=== PATIENT | male | born 1950 | race Caucasian/White ===

== ENCOUNTER → 2016-11-15 | Outpatient (CLI) | payer OTHER | LOC: FIMAGING 06:53 | PROVIDERS: ATTEND Psychiatry & Neurology Neurology | DX: R94.02 Abnormal brain scan (principal); G40.909 Epilepsy, unspecified, not intractable, without status epilepticus ==

== ENCOUNTER → 2016-11-24 | Outpatient (CLI) | payer OTHER ==
--- NOTE | 2016-11-27 12:04 | CPEEG ---
[f rep st] ELECTROENCEPHALOGRAM PROLONGED VIDEO EEG DATE OF STUDY: 11/24/2016 DATE OF INTERPRETATION: 11/27/2016. INTERPRETATION: This prolonged video-EEG recording is normal. There were no potentially epileptogenic abnormalities present in the awake or partial sleep recordings. During the video EEG monitoring session, the patient did not have any clinical events. REPORT: This prolonged video-EEG monitoring session contained 9 Hz alpha activity over the posterior head regions. There was no abnormal activation at rest, photic stimulation or hyperventilation. The patient became intermittently drowsy and fell into partial sleep during the study. There was no abnormal activation during drowsiness, partial sleep or during times of arousal. The patient did not have any clinical events during the video EEG monitoring session. This study was abbreviated due to the patient becoming uncomfortable and requesting the study to be ended. /[id number]/MODL MTDD
== END ==
LOC: FCPNEURO 08:42
PROVIDERS: ATTEND Psychiatry & Neurology Neurology
DX: G40.909 Epilepsy, unspecified, not intractable, without status epilepticus (principal)

== ENCOUNTER → 2017-04-20 | Outpatient (CLI) | payer OTHER | LOC: CIMAGING 14:18 | PROVIDERS: ATTEND Family Medicine | DX: M25.522 Pain in left elbow (principal) | CPT/HCPCS: 93971-PO ==

== ENCOUNTER → 2017-09-24 | Outpatient (CLI) | payer OTHER | LOC: CIMAGING 12:20 | PROVIDERS: ATTEND Family Medicine | DX: J98.4 Other disorders of lung (principal) | CPT/HCPCS: 71046-PO ==

== ENCOUNTER 2017-11-08 06:56 | Observation (INO) | payer OTHER ==
[2017-11-08] MEDS ORDERED: diphenhydrAMINE 25 MG CAP PO ONE (07:00)
[2017-11-08] MEDS ORDERED: DIAZEPAM 5 MG TAB PO ONE (07:00)
[2017-11-08] MEDS ORDERED: BACITRACIN IRRIGATION/NS 50,000 UNITS/1,000 ML BTL IRR ONE (07:00)
[2017-11-08] MEDS ORDERED: ceFAZolin 2 GM/SWFI 2 GM/20 ML SYR IVP ONE (07:00)
[2017-11-08] MEDS ORDERED: NS 1,000 ML IV ONE (07:00)
--- NOTE | 2017-11-08 07:18 | CPEKG ---
Heart Rate: 66 RR Interval: 909 P-R Interval: 192 QRSD Interval: 84 QT Interval: 432 QTC Interval: 453 P [place]: 12 QRS [place]: -27 T Wave [place]: 18 EKG Severity - BORDERLINE ECG - EKG Impression: SINUS ARRHYTHMIA, RATE 56-79 EKG Impression: PROBABLE LEFT ATRIAL ABNORMALITY EKG Impression: BORDERLINE LEFT AXIS DEVIATION Electronically Signed By: Swapnil Gerber 14-Nov-2017 11:11:08
[2017-11-08 07:39] LABS: PLATELET COUNT 205 10^3/uL (150-400)
[2017-11-08] MEDS ORDERED: methylPREDNISolone SOD SUCC 125 MG/2 ML VIAL IVP ONE (07:55)
[2017-11-08] MEDS ORDERED: FAMOTIDINE 20 MG/NACL 50 ML IV ONE (07:55)
[2017-11-08 07:57] LABS: INR 0.88 (0.83-1.16); PROTIME(PATIENT) 12.2 SEC (12.0-15.0)
[2017-11-08] MEDS ORDERED: LIDOCAINE 1% 300 MG/30 ML SDV ONE ×2 (08:01→09:17)
[2017-11-08] MEDS ORDERED: fentaNYL 100 MCG/2 ML INJ ONE (08:01)
[2017-11-08] MEDS ORDERED: MIDAZOLAM 2 MG/2 ML VIAL ONE ×2 (08:01→09:26)
--- NOTE | 2017-11-08 08:27 | PDGENHP ---
History & Physical Chief Complaint: Flutter AF and 8 sec pause on event monitor History of Present Illness: As above, flutter fib and 8 sec pause on event monitor Pertinent Past, Social, Family History: Reviewed and no changes Relevant Physical Exam: S1S2 regular no S3 Cardiorespiratory Assessment: Normal good aebe
--- NOTE | 2017-11-08 08:28 | PDPROPOC ---
Sedation Plan of Care Sedation Plan of Care: vital signs stable, mental status noted, patient educated of risks, benefits, alternatives, patient can tolerate sedation ASA Classification: ASA 3 Planned drugs: fentanyl, midazolam Mallampati Score: Class 3 Mallampati Reference Image: Patient passed 3-3-2 rule?: Yes
[2017-11-08] MEDS ORDERED: FLUTICASONE NASAL 120 SPRAYS/16 GM MDI EACHNARE PRN (10:05)
[2017-11-08] MEDS ORDERED: ZOLPIDEM TARTRATE 5 MG TAB PO PRN (10:05)
[2017-11-08] MEDS ORDERED: CARBOXYMETHYLCELLULOSE 1% 0.4 ML DROPERETTE EACHEYE PRN (10:05)
[2017-11-08] MEDS ORDERED: MOMETASONE 220MCG INHALER IH PRN ×2 (10:05→11:03)
[2017-11-08] MEDS ORDERED: ALBUTEROL 60 PUFFS/8 GM MDI IH PRN (10:05)
[2017-11-08] MEDS: ACETAMINOPHEN 325 MG TAB PO PRN ×2 (15:09→20:53)
[2017-11-08] MEDS: cycloSPORINE 0.05% 30 DROPERETTE/BOX EACHEYE SCH (20:06)
[2017-11-08] MEDS: APIXABAN 5 MG TAB PO SCH (20:53)
[2017-11-08] MEDS ORDERED: APIXABAN 5 MG TAB PO SCH (21:00)
[2017-11-09] MEDS: ACETAMINOPHEN 325 MG TAB PO PRN ×2 (05:12→10:36)
[2017-11-09] MEDS: APIXABAN 5 MG TAB PO SCH (07:59)
[2017-11-09] MEDS: cycloSPORINE 0.05% 30 DROPERETTE/BOX EACHEYE SCH (08:00)
--- NOTE | 2017-11-09 08:50 | CPEKG ---
Heart Rate: 74 RR Interval: 811 P-R Interval: 180 QRSD Interval: 90 QT Interval: 416 QTC Interval: 462 P [place]: 9 QRS [place]: -27 T Wave [place]: 5 EKG Severity - BORDERLINE ECG - EKG Impression: SINUS RHYTHM EKG Impression: PROBABLE LEFT ATRIAL ABNORMALITY EKG Impression: BORDERLINE LEFT AXIS DEVIATION Electronically Signed By: Swapnil Gerber 14-Nov-2017 11:10:55
[2017-11-09] MEDS ORDERED: LEVETIRACETAM PO SCH ×2 (09:00)
[2017-11-09] MEDS ORDERED: [UNRECOGNIZED DRUG - OTHER] PO SCH (09:00)
[2017-11-09] MEDS ORDERED: HYDROCHLOROTHIAZIDE PO SCH (09:00)
[2017-11-09] MEDS ORDERED: ATORVASTATIN CALCIUM 20 MG TAB PO SCH (09:00)
[2017-11-09] MEDS ORDERED: PANTOPRAZOLE SODIUM 40 MG TAB PO SCH (09:00)
[2017-11-09] MEDS ORDERED: LOSARTAN/HCTZ 50/12.5 1 TAB PO SCH (09:00)
[2017-11-09] MEDS ORDERED: Herbals/Supplements -Info Only PO SCH (09:00)
[2017-11-09] MEDS ORDERED: METOPROLOL SUCCINATE XR 100 MG TAB PO SCH (09:00)
[2017-11-09] MEDS ORDERED: LOSARTAN PO SCH (09:00)
[2017-11-09] MEDS ORDERED: NON-FORMULARY NEW DRUG (Omeprazole Magnesium [Prilosec Otc] 20 MG) PO SCH (09:00)
[2017-11-09] MEDS ORDERED: valACYclovir 500 MG TAB PO SCH (09:00)
[2017-11-09] MEDS ORDERED: MONTELUKAST SODIUM 10 MG TAB PO SCH (09:00)
[2017-11-09] MEDS ORDERED: NON-FORMULARY NEW DRUG (Meloxicam [Meloxicam] 15 MG) PO SCH (09:00)
[2017-11-09] MEDS ORDERED: NON-FORMULARY NEW DRUG (Valacyclovir Hcl [Valtrex] 1,000 MG) PO SCH (10:05)
--- NOTE | 2017-11-09 11:30 | GDS ---
[f rep st] DISCHARGE SUMMARY DISCHARGE DIAGNOSES: 1. Asymptomatic pauses noted on LINQ monitor of 8 seconds, status post Biotronik dual chamber pacema ker. 2. Asymptomatic atrial fibrillation and atrial flutter, currently on Eliquis. 3. Hypertension. 4. Hyperlipidemia. 5. Transient ischemic attack. HOSPITAL COURSE: For detailed H and P, please see prior dictation. Briefly, the patient is a 67-yea r-old male with a history of TIA, hypertension, hyperlipidemia, and asymptomatic atrial fibrillation and atrial flutter. He is also noted to have pauses of 8 seconds on LINQ monitor, which were asympto matic. Ultimately, due to his significant pauses, the decision was made to proceed with dual-chamber pacemaker placement. This was done by Dr. Saravanan Van on November 08, 2017. He had a Biotronik DDDR pacer placed. The procedure was uncomplicated. The following morning, he denied any significant dis comfort over his pacer site. He was monitored on telemetry and was intermittently paced. Pacer inte rrogation the following morning showed his device to be working appropriately. An EKG the following morning revealed A pacing without any significant ST-T wave changes. Chest x-ray the day of discharg e is currently pending. PHYSICAL EXAMINATION: GENERAL: Patient appears in no acute distress. VITALS: Blood pressure 158/8 3, heart rate 71, oxygen saturation of 96% on room air. LUNGS: Clear to auscultation. No wheezes, rhonchi, or crackles auscultated. CARDIAC: Regular rate and rhythm without any significant murmurs, rubs, or gallops appreciated. Chest wall over his pacer site is clean and intact, without any evide nce of hematoma or infection. DISCHARGE MEDICATIONS: Flonase p.r.n., Prilosec 20 mg daily, metoprolol succinate 200 mg daily, losa rtan/HCTZ 100-25 mg daily, albuterol p.r.n., herbal supplement daily, Valtrex 1000 mg on Sunday and Sunday, Singulair 10 mg daily, Ambien 5 mg 2 tabs at bedtime p.r.n., Restasis eyedrops, Refresh eye d rops, Tylenol p.r.n. for pain, Meloxicam 15 mg daily, Asmanex p.r.n., Lipitor 20 mg daily, Keppra XR 2250 mg daily, Eliquis 5 mg b.i.d. PLAN: The patient is currently stable and ready for discharge pending the results of his chest x-ray . If no pneumothorax is identified, he will be discharged home. He has been given pacer precautions . He is scheduled to follow up in our office in 1 week for a pacer interrogation and wound check. Greater than 30 minutes was spent coordinating the patient's care today. /[id number]/MODL
[2017-11-09 11:46] VITALS: BP 143/75; PULSE 63; RESP 17; TEMP 97.4; O2SAT 96
--- NOTE | 2017-11-09 12:43 | EPPROC ---
Electrophysiology Procedure Note: PROCEDURE PERFORMED: Implantation of an A/V Pacemaker Fluoroscopy INDICATION: This is a 67 r old male with SSS who had 8 sec pause on LINQ monitor and hence it was decided to implant a dual chamber pacemaker PROCEDURE NOTE: Patient presented to the cardiac catherization laboratory in a fasting, post absorptive state. Cardiac lab asst nurse administered moderate sedation. The left infraclavicular area was prepped and draped in the usual sterile fashion. Lidocaine plus bupivacaine was used for local anesthesia. Left subclavian venography was performed by injection of iodinated contrast into the left antecubital vein. This was done to assure patency of the vein and also to assess for any anatomical aberrations. Using a combination of blunt and sharp dissection and electrocautery, the dissection was carried down to the prepectoral fascia. All bleeding was controlled with electrocautery. Fluoroscopy was utilized during the entire procedure for venous access and placement of the leads. Using the usual technique, left cephalic vein was accessed and a glidewire was placed. Through this initially a 9F and later a 7F sheath was passed. Placement of the guidewires into the venous system was confirmed by low- pressure blood return and also by visualizing the guidewires advancing into the inferior vena cava. A purse string suture was applied around the guidewires. An active fixation ventricular lead was advanced into the right ventricular apex and screwed in place. An active fixation atrial lead was advanced into the right atrial appendage and screwed in place. The peel away sheaths were removed. Pacing thresholds, sensing parameters and lead impedances were measured. There was no diaphragmatic stimulation at maximum output. The leads were sutured to the prepectoral fascia with 3 nonabsorbable sutures each. The pocket was created and it was flushed using antibiotic solution. It was inspected for any bleeding. The leads were attached to the pacemaker securely. The pacemaker was inserted into the pocket and secured in place with a nonabsorbable suture. Fluoroscopy was performed in RAYA and POLISH planes to verify right-sided placement of the leads. Also fluoroscopy of the pacemaker pocket was performed. The pacemaker pocket was closed in 3 layers with absorbable vicryl sutures. Steristrips were placed. Appropriate dressing was applied. The patient left the cardiac catheterization laboratory in stable condition. Serial Numbers: Device: Biotronik Edora [id number] Atrial Lead: Biotronik Solia S45 SN [id number] Ventricular Lead: Biotronik SOlia S53 SN [id number] Stimulation Thresholds & Impedance Measurements: Atrial Lead 2.1 mV, 0.8@0.4ms, 468Ohms Ventricular Lead 8.6mV, 0.4@0.4ms, 721Ohms Sridhar Pacing Parameters Pacing mode: DDDR Lower rate: 60 Upper tracking rate: 130 Upper sensor rate: 130 Patient Problems: Problems Problem Status Onset Osteoarthritis of knee Acute
--- NOTE | 2017-11-09 16:50 | ASDISCHSUM ---
Discharge Information Plan Status:Home with No Needs Medically Cleared to Leave:11/09/2017 Discharge Date:11/09/2017 12:18 PM CM D/C Disposition:Home, Routine, Self-Care ADT D/C Disposition:Home, Routine, Self-Care Projected Discharge Date:11/09/2017 12:18 PM Transportation at D/C: Discharge Delay Reason: Follow-Up Date:11/09/2017 12:18 PM Discharge Slot: Final Diagnosis: Placement Information Patient Contact Information Contact Name:JAIDASONALI Relationship: Address:[address] Work Phone: [facility]:[place] Alternate Phone: [facility]/Zip Code:[place] [address] Email: Financial Information Financial Class:Medicare Primary Plan Desc:MEDICARE OUTPATIENT Primary Plan Number:[id number] Secondary Plan Desc:[facility] [employer] [facility] Secondary Plan Number:[id number] Assessment Information LACE LACE Length of stay for Answers: 1 day current admission Acuity / Level of Answers: No Care: Did the patient have an inpatient admission? Comorbidities - select Answers: Cerebrovascular disease all that apply (CVA, TIA, aneurysms, vasc ular dementia) Other Notes: SSS, AFL, s/p PPM # of Emergency department Answers: 0 visits in the last 6 months Score: 3 Date Signed: 11/09/2017 04:49 PM Electronically Signed By:Shayna Jolley RN Case Management Discharge Plan Note Case Management Discharge Discharge Order Complete? Answers: Yes Patient to Obtain Answers: Independently Medications Transportation Arranged Answers: Family/Friends Discharge Comments Notes: 11/09/2017 Case Management Note Pt did not have any case management d/c needs d/t age, marital status and employment status. There were no PT or OT evals ordered. Pt d/c independent with follow up as directed. Date Signed: 11/09/2017 01:04 PM Electronically Signed By:Shayna Jolley RN Intervention Information Intervention Type:*GUILLORY-Signed Date of Service:11/09/2017 10:53 AM Patient Type:Observation Staff Member:Ely Cavazos Hours: Discipline: Severity: Comment:
== END 2017-11-09 12:18 | disposition home or self-care (01) ==
LOC: FCATH 06:56 → EEVIPCON 10:04 → F2W 10:04
PROVIDERS: ADMIT Internal Medicine Cardiovascular Disease; ATTEND Internal Medicine Cardiovascular Disease
PROC: 0JH606Z Insertion of Pacemaker, Dual Chamber into Chest Subcutaneous Tissue and Fascia, Open Approach (ICD-10-PCS; principal; 2017-11-08)
PROC: 02H63JZ Insertion of Pacemaker Lead into Right Atrium, Percutaneous Approach (ICD-10-PCS; principal; 2017-11-08)
PROC: 02HK3JZ Insertion of Pacemaker Lead into Right Ventricle, Percutaneous Approach (ICD-10-PCS; principal; 2017-11-08)
DX: I49.5 Sick sinus syndrome (principal); I48.91 Unspecified atrial fibrillation; I48.92 Unspecified atrial flutter; I10 Essential (primary) hypertension; E78.5 Hyperlipidemia, unspecified; Z79.01 Long term (current) use of anticoagulants; Z86.73 Personal history of transient ischemic attack (TIA), and cerebral infarction without residual deficits
CPT/HCPCS: 33208; 71046; 93005; C1769; C1785; C1898; J0690; J1200; J2250; J2930; J3010

== ENCOUNTER → 2018-02-15 | Outpatient (CLI) | payer OTHER | LOC: FIMAGING 09:30 | PROVIDERS: ATTEND Nurse Practitioner Adult Health | DX: T82.110A Breakdown (mechanical) of cardiac electrode, initial encounter (principal); Z95.0 Presence of cardiac pacemaker ==

== ENCOUNTER 2018-03-20 09:11 | Day surgery (SDC) | payer OTHER ==
[2018-03-20] MEDS ORDERED: FAMOTIDINE 20 MG/NACL 50 ML IV ONE (09:14)
[2018-03-20] MEDS ORDERED: methylPREDNISolone SOD SUCC 125 MG/2 ML VIAL IVP ONE (09:14)
[2018-03-20] MEDS ORDERED: BACITRACIN IRRIGATION/NS 50,000 UNITS/1,000 ML BTL IRR ONE (09:14)
[2018-03-20] MEDS ORDERED: ceFAZolin 2 GM/DEXTROSE 100 ML IV ONE (09:14)
[2018-03-20] MEDS ORDERED: NS 1,000 ML IV ONE (09:14)
[2018-03-20 09:44] LABS: PLATELET COUNT 205 10^3/uL (150-400)
[2018-03-20 10:00] LABS: INR 0.93 (0.83-1.16); PROTIME(PATIENT) 12.7 SEC (12.0-15.0)
--- NOTE | 2018-03-20 10:08 | CPEKG ---
Heart Rate: 60 RR Interval: 1000 P-R Interval: 192 QRSD Interval: 86 QT Interval: 456 QTC Interval: 456 P [place]: 28 QRS [place]: -29 T Wave [place]: -9 EKG Severity - ABNORMAL ECG - EKG Impression: PACEMAKER SPIKES OR ARTIFACTS EKG Impression: SINUS RHYTHM EKG Impression: PROBABLE LEFT ATRIAL ABNORMALITY EKG Impression: BORDERLINE LEFT AXIS DEVIATION EKG Impression: BORDERLINE T ABNORMALITIES, INFERIOR LEADS Electronically Signed By: Kelley Hernandez 20-Mar-2018 16:18:15
[2018-03-20] MEDS ORDERED: IOPAMIDOL (ISOVUE-300) 50 ML VIAL ONE (10:18)
[2018-03-20] MEDS ORDERED: MIDAZOLAM 2 MG/2 ML VIAL ONE (10:18)
[2018-03-20] MEDS ORDERED: LIDOCAINE 1% 300 MG/30 ML SDV ONE (10:18)
[2018-03-20] MEDS ORDERED: fentaNYL 100 MCG/2 ML INJ ONE (10:18)
[2018-03-20] MEDS ORDERED: BUPIVACAINE 0.5% 30 ML SDV ONE (10:19)
--- NOTE | 2018-03-20 13:52 | CPEKG ---
Heart Rate: 60 RR Interval: 1000 P-R Interval: 196 QRSD Interval: 86 QT Interval: 460 QTC Interval: 460 QRS [place]: -32 T Wave [place]: -13 EKG Severity - ABNORMAL ECG - EKG Impression: ATRIAL-PACED RHYTHM EKG Impression: LEFT AXIS DEVIATION EKG Impression: PROBABLE LEFT VENTRICULAR HYPERTROPHY EKG Impression: TALL R WAVE IN V2, CONSIDER RVH OR PMI EKG Impression: BORDERLINE T ABNORMALITIES, INFERIOR LEADS Electronically Signed By: Kelley Hernandez 20-Mar-2018 16:17:57
--- NOTE | 2018-03-20 14:23 | PDHPUP ---
History & Physical Update H&P update statement: This history and physical update is based on an assessment of the patient which was completed after admission or registration (within 24 hours), but prior to the surgery/procedure. H&P update: H&P reviewed & patient examined, no change in patient's condition since H&P completed
--- NOTE | 2018-03-20 14:23 | PDPROPOC ---
Sedation Plan of Care Sedation Plan of Care: vital signs stable, mental status noted, patient educated of risks, benefits, alternatives, patient can tolerate sedation ASA Classification: ASA 1 Planned drugs: fentanyl, midazolam Mallampati Score: Class 1 Mallampati Reference Image: Patient passed 3-3-2 rule?: Yes
--- NOTE | 2018-03-20 14:23 | EPPROC ---
Electrophysiology Procedure Note: PROCEDURE PERFORMED: 1. Explant of Ventricular lead 2. Capping of atrial port on pacemaker generator 3. Explant of LINQ ILR INDICATION: Pt. had PM placed by Dr. Saravanan Van. Chronic RV lead dislodgement. Patient did not want repositioning or implant of new right ventricular lead, please refer to my clinic note. PROCEDURE NOTE: Patient presented to the cardiac catheterization laboratory in a fasting, post absorptive state . CCL RN administered sedation. The left infraclavicular area was prepped and draped in the usual sterile fashion. Lidocaine plus bupivacaine was used for local anesthesia. LINQ monitor was explanted using standard technique under local anesthesia. 2 josé were applied. Using a combination of blunt and sharp dissection and electrocautery, the existing pacemaker pocket was opened. The pocket was lateral because of cephalic vein access. The right ventricular lead was disconnected from the device and after confirming serial numbers, was dissected free of scar tissue. Suture sleeve sutures were removed. Lead was easily extracted , it was free floating and dislodged. The atrial lead thresholds were checked pre and post procedure and remained stable. The ventricular port on the dual-chamber pacemaker was plugged. The pacemaker pocket was closed in 3 layers with absorbable monocryl sutures and josé. Appropriate dressing was applied. The patient left the cardiac catheterization laboratory in stable condition. Serial Numbers: 1. Device: Biotronik Edora 8 DRT SN [id number] 2. Atrial Lead: Biotronik Solia S45 SN [id number] Stimulation Thresholds & Impedance Measurements: 1. Atrial Lead 0.6 V 0.4 ms P 5.7 mV 567 ohm Sridhar Pacing Parameters 1. Pacing mode: AAI 2. Lower rate: 60ppm Patient Problems: Problems Problem Status Onset Osteoarthritis of knee Acute
== END 2018-03-20 16:30 | disposition home or self-care (01) ==
LOC: FCATH 09:11
PROVIDERS: ATTEND Internal Medicine Cardiovascular Disease
DX: T82.120A Displacement of cardiac electrode, initial encounter (principal)
CPT/HCPCS: J0690; J2250; J3010; Q9967

== ENCOUNTER 2018-06-26 10:59 | Emergency (ER) | payer OTHER ==
[2018-06-26] MEDS ORDERED: NS 1,000 ML IV ONE (11:26)
--- NOTE | 2018-06-26 11:32 | EDPHY ---
H & P Stated Complaint: 4 weeks increasing lumbar back pain /?flank pain Source: Patient Exam Limitations: No limitations - Personal History Current Tetanus Diphtheria and Acellular Pertussis (TDAP): Yes - Medical/Surgical History Hx Asthma: Yes Hx Chronic Respiratory Disease: No Hx Diabetes: No Hx Cardiac Disease: No Hx Renal Disease: No Hx Cirrhosis: No Hx Alcoholism: No Hx HIV/AIDS: No Hx Splenectomy or Spleen Trauma: No Other PMH: HTN. ORTHO KNEE & ELBOW SURGERY, epilepsy, sleep apnea, asthma, allergies. back issues - Family History Significant Family History: No pertinent family hx - Social History Smoking Status: Never smoked Alcohol Use: Sober Drug Use: None Time Seen by Provider: 06/26/18 11:21 HPI/ROS: CHIEF COMPLAINT: Back pain HISTORY OF PRESENT ILLNESS: The patient is a 67-year-old man who has been treated for chronic mid and low back pain by a client care specialist Dr. Gold. He has recently received steroid injections and today was scheduled for the radiofrequency treatment. He has discontinued his meloxicam over the last few days in preparation for today's treatment. He states that his pain and spasming his growing worse. Today when he presented to her office she felt that his symptoms are more consistent possibly with a kidney stone or infection and recommended that he come here for rule out of these issues. He has not had any weakness or numbness. He has not had any bowel or bladder abnormalities. No fevers. The he is not currently taking any muscle relaxants or pain medications. Severity: Severe Modifying factors: None REVIEW OF SYSTEMS: Constitutional: denies: chills, fever, recent illness, recent injury EENTM: denies: blurred vision, double vision, nose congestion Respiratory: denies: cough, shortness of breath Cardiac: denies: chest pain, irregular heart rate, lightheadedness, palpitations Gastrointestinal/Abdominal: denies: abdominal pain, diarrhea, nausea, vomiting, blood streaked stools Genitourinary: denies: dysuria, frequency, hematuria, pain Musculoskeletal: See HPI Skin: denies: lesions, rash, jaundice, bruising Neurological: denies: headache, numbness, paresthesia, tingling, dizziness, weakness Hematologic/Lymphatic: denies: blood clots, easy bleeding, easy bruising Immunologic/allergic: denies: HIV/AIDS, transplant 10 systems reviewed and negative except as noted EXAM: GENERAL: Moderate distress, feels better standing up. HEAD: Atraumatic, normocephalic. EYES: Pupils equal round and reactive to light, extraocular movements intact, sclera anicteric, conjunctiva are normal. ENT: TMs normal, nares patent, oropharynx clear without exudates. Moist mucous membranes. NECK: Normal range of motion, supple without lymphadenopathy or JVD. LUNGS: Breath sounds clear to auscultation bilaterally and equal. No wheezes rales or rhonchi. HEART: Regular rate and rhythm without murmurs, rubs or gallops. ABDOMEN: Soft, nontender, normoactive bowel sounds. No guarding, no rebound. No masses appreciated. BACK: Left-sided CVA pain, no tenderness, no spinal tenderness, step-offs or deformities EXTREMITIES: Normal range of motion, no pitting or edema. No clubbing or cyanosis. NEUROLOGICAL: Cranial nerves II through XII grossly intact. Normal speech, able to ambulate with pain. 5/5 strength, normal movement in all extremities, normal sensation, normal reflexes PSYCH: Normal mood, normal affect. SKIN: Warm, dry, normal turgor, no visible rashes or lesions. (Darnell García) Constitutional: Initial Vital Signs Temperature (C) 36.9 C 06/26/18 11:02 Heart Rate 73 06/26/18 11:02 Respiratory Rate 18 06/26/18 11:02 Blood Pressure 156/72 H 06/26/18 11:02 O2 Sat (%) 97 06/26/18 11:02 O2 Delivery Mode Room Air Allergies/Adverse Reactions: shellfish derived Allergy (Severe, Verified 06/26/18 11:02) Swelling/neck,face,throat Sulfa (Sulfonamide Antibiotics) Allergy (Severe, Verified 06/26/18 11:02) Unknown tree nut [Nuts] Allergy (Verified 06/26/18 11:02) all fish, seafood Allergy (Severe, Uncoded 05/25/14 11:38) Swelling/neck,face,throat Home Medications: Medication Instructions Recorded Fluticasone Nasal [Flonase Nasal 1 sprays EACHNARE DAILY PRN 06/02/11 [place]] Albuterol [Proventil Inhaler HFA 2 puffs IH Q4 PRN 05/18/14 (*)] Losartan/Hydrochlorothiazide 1 tab PO DAILY 05/18/14 [Losartan-Hctz 100-25 mg Tab] Metoprolol Succinate Xr [Toprol Xl 200 mg PO DAILY 05/18/14 100 mg (*)] Montelukast Sodium [Singulair 10 10 mg PO HS 05/18/14 mg (*)] Omeprazole Magnesium [Prilosec Otc] 20 mg PO DAILY 05/18/14 Valacyclovir HCl [Valtrex] 500 mg PO BID PRN 05/18/14 Acetaminophen [Tylenol 325mg (*)] 325 mg PO Q6 PRN 11/06/17 Apixaban [Eliquis] 5 mg PO BID 11/06/17 Atorvastatin Calcium [Lipitor 20 20 mg PO HS 11/06/17 mg (*)] Carboxymethylcellulose 1% [Refresh 1 drop EACHEYE DAILY PRN 11/06/17 Celluvisc (*)] Mometasone 220Mcg Inhaler [Asmanex 1 puffs IH DAILY PRN 11/06/17 Inh (*)] Zolpidem Tartrate [Ambien 5MG (*)] 10 mg PO HS PRN 11/06/17 cycloSPORINE 0.05% [Restasis Opht 1 drop EACHEYE BID 11/06/17 Drops(*)] levETIRAcetam [KEPPRA XR 750 mg] 2,250 tab PO DAILY 11/06/17 Multivitamins [Multivitamin (*)] 1 each PO DAILY 03/07/18 Tadalafil [Cialis] 20 mg PO DAILY PRN 03/07/18 Meloxicam 15 mg PO DAILY 03/20/18 Mometasone 220Mcg Inhaler [Asmanex 1 puffs IH BID 03/20/18 Inh (*)] Diazepam [Valium 5 MG (*)] 5 mg PO Q6 PRN #10 tab 06/26/18 Medical Decision Making - Diagnostics Imaging: Discussed imaging studies w/ call or contact centre operator Radiologist ED Course/Re-evaluation: I assumed care of this patient at shift change. The plan is to discharge the patient home after the MRI. MRI results discussed with the patient and his . Requesting prescription for Valium. Will follow up with Dr. Gold. ([place] Laura) I spoke with the patient's neurosurgeon Dr. Gold. She is requesting an MRI of the patient's lumbar spine to rule out infection because the patient's pain is worsen. Also had a low-grade fever at the clinic. No weakness or numbness. He does have a pacemaker however which will complicated situation. 2:45 p.m. the patient's pain is somewhat better after Valium. He will be here for another couple hours waiting for nurse monitoring to be available and the pacer sensor technician to the place his pacer in MRI mode. I will give him a dose of Toradol. Care transferred to Dr. Salma Helton at shift change. (Darnell García ) Differential Diagnosis: Partial list of the Differential diagnosis considered include but were not limited to; back pain, radiculopathy, infection, kidney stone, urinary tract infection and although unlikely based on the history and physical exam, I also considered acute coronary disease, dissection,. I discussed these differential diagnoses and the plan with the patient as well as the usual and expected course. The patient understands that the diagnosis is provisional and that in medicine we are not always correct and that further workup is often warranted. Usual and customary warnings were given. All of the patient's questions were answered. The patient was instructed to return to the emergency department should the symptoms at all worsen or return, otherwise to followup with the physician as we discussed. (Darnell García) - Data Points Laboratory Results: Laboratory Results 06/26/18 11:40 06/26/18 11:40 Medications Given: Discontinued Medications Diazepam (Valium) 5 mg IVP EDNOW ONE Stop: 06/26/18 11:52 Last Admin: 06/26/18 11:52 Dose: 5 mg Diazepam (Valium) 2.5 mg IVP EDNOW ONE Stop: 06/26/18 16:40 Last Admin: 06/26/18 16:40 Dose: 2.5 mg Hydromorphone HCl (Dilaudid) 1 mg IVP EDNOW ONE Stop: 06/26/18 15:13 Last Admin: 06/26/18 15:18 Dose: 1 mg Sodium Chloride (Ns) 1,000 mls @ 0 mls/hr IV EDNOW ONE; Wide Open PRN Reason: Protocol Stop: 06/26/18 11:27 Last Admin: 06/26/18 11:52 Dose: 1,000 mls Ketorolac Tromethamine (Toradol) 15 mg IVP EDNOW ONE Stop: 06/26/18 14:44 Last Admin: 06/26/18 14:45 Dose: 15 mg Departure - Departure Disposition: Home, Routine, Self-Care Clinical Impression: Low back pain Qualifiers: Chronicity: chronic Back pain laterality: midline Sciatica presence: without sciatica Qualified Code(s): M54.5 - Low back pain; G89.29 - Other chronic pain; G89.29 - Other chronic pain Condition: Fair Instructions: Acute Low Back Pain (ED) Referrals: Iris Steele MD [Primary Care Provider] - As per Instructions Mohini Gold [Medical Doctor] - As per Instructions (Call to make an appointment. ) Prescriptions: Diazepam [Valium 5 MG (*)] 5 mg PO Q6 PRN #10 tab PRN Reason: muscle spasm
[2018-06-26] MEDS ORDERED: DIAZEPAM 5 MG/ML 1 ML SYR ONE ×2 (11:50→16:35)
[2018-06-26] MEDS ORDERED: DIAZEPAM 5 MG/ML 1 ML SYR IVP ONE ×2 (11:51→16:39)
[2018-06-26 11:57] LABS: PLATELET COUNT 209 10^3/uL (150-400)
[2018-06-26] MEDS ORDERED: KETOROLAC 15 MG/1 ML SDV IVP ONE (14:43)
[2018-06-26] MEDS ORDERED: HYDROmorphONE/DILAUDID 2 MG/ML INJ IVP ONE (15:12)
[2018-06-26] MEDS ORDERED: HYDROmorphONE/DILAUDID 1 MG/ML INJ ONE (15:13)
[2018-06-26] MEDS ORDERED: GADOBUTROL 10 ML VIAL IVP ONE (16:50)
[2018-06-26 17:43] VITALS: BP 152/78
== END 2018-06-26 18:22 | disposition home or self-care (01) ==
DX: M54.5 Low back pain (principal); M48.061 Spinal stenosis, lumbar region without neurogenic claudication; M43.16 Spondylolisthesis, lumbar region; I10 Essential (primary) hypertension
CPT/HCPCS: 72158; 74176; 96374; 96375; 96376; 99285; A9585; J1170; J1885; J3360

== ENCOUNTER 2018-07-25 11:30 | Observation (INO) | payer OTHER ==
[2018-07-25] MEDS ORDERED: NS 1,000 ML IV ONE (11:35)
--- NOTE | 2018-07-25 11:37 | EDPHY ---
H & P Time Seen by Provider: 07/25/18 11:32 HPI/ROS: CHIEF COMPLAINT: Seizure HISTORY OF PRESENT ILLNESS: The patient is a 67-year-old man with a history of seizure disorder on Keppra. He also takes Eliquis but is unable to say why. He was at a car dealership this afternoon when he began having what witnesses state was "back spasming". He then was acutely confused. Paramedics state that he appeared postictal when they arrived. He is still oriented only to person. He states that he needs to go the bathroom. No focal weakness or deficits. Paramedics spoke with his on the phone who is on her way. She told them that similar episodes of happen before. No sign of trauma. Severity: Moderate Modifying factors: Gradually REVIEW OF SYSTEMS: Constitutional: denies: chills, fever, recent illness, recent injury EENTM: denies: blurred vision, double vision, nose congestion Respiratory: denies: cough, shortness of breath Cardiac: denies: chest pain, irregular heart rate, lightheadedness, palpitations Gastrointestinal/Abdominal: denies: abdominal pain, diarrhea, nausea, vomiting, blood streaked stools Genitourinary: denies: dysuria, frequency, hematuria, pain Musculoskeletal: denies: joint pain, muscle pain Skin: denies: lesions, rash, jaundice, bruising Neurological: See HPI Hematologic/Lymphatic: denies: blood clots, easy bleeding, easy bruising Immunologic/allergic: denies: HIV/AIDS, transplant 10 systems reviewed and negative except as noted EXAM: GENERAL: Slightly confused, appears postictal,, well-nourished and in no acute distress. HEAD: Atraumatic, normocephalic. EYES: Pupils equal round and reactive to light, extraocular movements intact, sclera anicteric, conjunctiva are normal. ENT: TMs normal, nares patent, oropharynx clear without exudates. Moist mucous membranes. NECK: Normal range of motion, supple without lymphadenopathy or JVD. LUNGS: Breath sounds clear to auscultation bilaterally and equal. No wheezes rales or rhonchi. HEART: Regular rate and rhythm without murmurs, rubs or gallops. ABDOMEN: Soft, nontender, normoactive bowel sounds. No guarding, no rebound. No masses appreciated. BACK: No CVA tenderness, no spinal tenderness, step-offs or deformities EXTREMITIES: Normal range of motion, no pitting or edema. No clubbing or cyanosis. NEUROLOGICAL: Cranial nerves II through XII grossly intact. Normal speech, normal gait. 5/5 strength, normal movement in all extremities, normal sensation , normal reflexes PSYCH: Normal mood, normal affect. SKIN: Warm, dry, normal turgor, no visible rashes or lesions. Source: Patient, EMS Exam Limitations: Clinical condition - Medical/Surgical History Hx Asthma: Yes Hx Chronic Respiratory Disease: No Hx Diabetes: No Hx Cardiac Disease: No Hx Renal Disease: No Hx Cirrhosis: No Hx Alcoholism: No Hx HIV/AIDS: No Hx Splenectomy or Spleen Trauma: No Other PMH: HTN. ORTHO KNEE & ELBOW SURGERY, epilepsy, sleep apnea, asthma, allergies. back issues - Social History Smoking Status: Never smoked Alcohol Use: Sober Drug Use: None Constitutional: Initial Vital Signs Temperature (C) 36.6 C 07/25/18 11:38 Heart Rate 77 07/25/18 11:38 Respiratory Rate 20 07/25/18 11:38 Blood Pressure 186/108 H 07/25/18 11:38 O2 Sat (%) 100 07/25/18 11:38 O2 Delivery Mode Non-Rebreather Mask Allergies/Adverse Reactions: shellfish derived Allergy (Severe, Verified 07/25/18 11:44) Swelling/neck,face,throat Sulfa (Sulfonamide Antibiotics) Allergy (Severe, Verified 07/25/18 11:44) Unknown tree nut [Nuts] Allergy (Verified 07/25/18 11:44) all fish, seafood Allergy (Severe, Uncoded 05/25/14 11:38) Swelling/neck,face,throat Home Medications: Medication Instructions Recorded Fluticasone Nasal [Flonase Nasal 1 sprays EACHNARE DAILY PRN 06/02/11 [place]] Albuterol [Proventil Inhaler HFA 2 puffs IH Q4 PRN 05/18/14 (*)] Losartan/Hydrochlorothiazide 1 tab PO DAILY 05/18/14 [Losartan-Hctz 100-25 mg Tab] Metoprolol Succinate Xr [Toprol Xl 200 mg PO DAILY 05/18/14 100 mg (*)] Montelukast Sodium [Singulair 10 10 mg PO DAILY 05/18/14 mg (*)] Omeprazole Magnesium [Prilosec Otc] 20 mg PO DAILY 05/18/14 Valacyclovir HCl [Valtrex] 500 mg PO BID PRN 05/18/14 Acetaminophen [Tylenol 325mg (*)] 650 mg PO TID 11/06/17 Apixaban [Eliquis] 5 mg PO BID 11/06/17 Atorvastatin Calcium [Lipitor 20 20 mg PO DAILY 11/06/17 mg (*)] Carboxymethylcellulose 1% [Refresh 1 drop EACHEYE DAILY PRN 11/06/17 Celluvisc (*)] Zolpidem Tartrate [Ambien 5MG (*)] 10 mg PO HS PRN 11/06/17 cycloSPORINE 0.05% [Restasis Opht 1 drop EACHEYE BID 11/06/17 Drops(*)] levETIRAcetam [KEPPRA XR 750 mg] 2,250 tab PO DAILY 11/06/17 Multivitamins [Multivitamin (*)] 1 each PO DAILY 03/07/18 Tadalafil [Cialis] 20 mg PO DAILY PRN 03/07/18 Meloxicam 15 mg PO DAILY 03/20/18 Mometasone 220Mcg Inhaler [Asmanex 1 puffs IH BID 03/20/18 Inh (*)] Diazepam [Valium 5 MG (*)] 5 mg PO Q6 PRN #10 tab 06/26/18 Cyclobenzaprine [Flexeril 10 MG 10 mg PO TID PRN 07/25/18 (*)] Gabapentin [Neurontin 300 MG (*)] 300 mg PO TID #90 cap 07/26/18 Medical Decision Making - Diagnostics Imaging: Discussed imaging studies w/ mail distribution clerk Radiologist ED Course/Re-evaluation: 12:15 p.m. the patient is having a seizure. This is his 2nd seizure. He has not completely cleared in between. I will order head CT and plan to admit. He is receiving Ativan. His is here now and states that he began having seizures a few months ago that they state is because of his severe back pain in that he has back surgery planned later this month. His neurologist is Dr. Medrano. He has been taking his Keppra. No fevers or recent trauma or illness. 12:[address] is reassuring. Technically did not clear between his seizures and qualifies as status. Will admit. I discussed the case with Sol who will admit to Dr. Sonja Alicea. 1:05 p.m. the patient has not had any further symptoms. The Ativan seems to be working. Is mental status is improving. Spoke with Dr. Alicea who will accept him to step-down. Differential Diagnosis: Partial list of the Differential diagnosis considered include but were not limited to; seizures, status epilepticus, electrolyte abnormality and although unlikely based on the history and physical exam, I also considered infection, head injury. - Data Points Laboratory Results: Laboratory Results 07/25/18 11:45 07/25/18 11:45 Medications Given: Discontinued Medications Acetaminophen (Tylenol) 650 mg PO Q4HRS PRN PRN Reason: Pain, Mild/Fever, Can Take PO Stop: 01/21/19 13:35 Last Admin: 07/25/18 20:12 Dose: 650 mg Acetaminophen (Tylenol) 1,000 mg PO ONCE ONE Stop: 07/25/18 14:14 Last Admin: 07/25/18 14:16 Dose: 1,000 mg Apixaban (Eliquis) 5 mg PO BID [facility] Stop: 01/21/19 20:59 Last Admin: 07/26/18 09:10 Dose: 5 mg Atorvastatin Calcium (Lipitor) 20 mg PO HS [facility] Stop: 01/21/19 20:59 Last Admin: 07/25/18 20:12 Dose: Not Given Atorvastatin Calcium (Lipitor) 20 mg PO DAILY [facility] Stop: 01/22/19 08:59 Last Admin: 07/26/18 09:08 Dose: 20 mg Cyclosporine (Restasis) 1 drop EACHEYE BID [facility] Stop: 01/21/19 20:59 Last Admin: 07/26/18 09:12 Dose: 1 drop Diazepam (Valium) 5 mg PO Q6 PRN PRN Reason: muscle spasm Stop: 01/21/19 15:05 Last Admin: 07/25/18 20:11 Dose: 5 mg Fluticasone Propionate (Flonase Nasal [place]) 1 sprays EACHNARE DAILY PRN PRN Reason: allergies Stop: 01/21/19 15:05 Last Admin: 07/26/18 09:23 Dose: 1 spray Gabapentin (Neurontin) 300 mg PO TID [facility] Stop: 01/21/19 20:44 Last Admin: 07/26/18 09:07 Dose: 300 mg HCTZ/Losartan Potassium (Hyzaar 50/12.5) 2 tab PO DAILY [facility] Stop: 01/22/19 08:59 Last Admin: 07/26/18 09:08 Dose: 2 tab Sodium Chloride (Ns) 1,000 mls @ 0 mls/hr IV ONCE ONE; Wide Open PRN Reason: Protocol Stop: 07/25/18 11:36 Last Admin: 07/25/18 12:26 Dose: 1,000 mls Lorazepam (Ativan Injection) 2 mg IVP EDNOW ONE Stop: 07/25/18 12:16 Last Admin: 07/25/18 12:20 Dose: 2 mg Metoprolol Succinate (Toprol Xl) 200 mg PO DAILY [facility] Stop: 01/22/19 08:59 Last Admin: 07/26/18 09:17 Dose: 200 mg Miscellaneous Medication (Keppra Xr 750) 3,000 mg PO DAILY [facility] Stop: 01/22/19 08:59 Last Admin: 07/26/18 09:22 Dose: 4 tab Mometasone Furoate (Asmanex) 1 puffs IH BID [facility] Stop: 01/21/19 20:59 Last Admin: 07/26/18 08:24 Dose: 1 puffs Montelukast Sodium (Singulair) 10 mg PO HS [facility] Stop: 01/21/19 20:59 Last Admin: 07/25/18 20:10 Dose: Not Given Montelukast Sodium (Singulair) 10 mg PO DAILY [facility] Stop: 01/22/19 08:59 Last Admin: 07/26/18 09:10 Dose: 10 mg Pantoprazole Sodium (Protonix) 40 mg PO DAILY [facility] Stop: 01/22/19 08:59 Last Admin: 07/26/18 09:11 Dose: 40 mg Zolpidem Tartrate (Ambien) 10 mg PO HS PRN PRN Reason: Sleep/Insomnia Stop: 01/21/19 15:05 Last Admin: 07/25/18 21:36 Dose: 10 mg Point of Care Test Results: Chemistry 07/25/18 11:56 POC Sodium 135 mEq/L mEq/L (135-145) POC Potassium 3.5 mEq/L mEq/L (3.3-5.0) POC Chloride 100 mEq/L mEq/L (97-110) POC BUN 10 mg/dL mg/dL (7-23) POC Creatinine 0.6 mg/dL L mg/dL (0.7-1.3) POC Glucose 108 mg/dL H mg/dL (70-100) ISTAT H&H 07/25/18 11:56 POC Hgb 16.3 gm/dL gm/dL (13.7-17.5) POC Hct 48 % % (40-51) Departure - Departure Disposition: [facility] Inpatient Acute Clinical Impression: Seizure disorder Condition: Good
[2018-07-25] MEDS ORDERED: LORazepam 2 MG/ML INJ IVP ONE (12:15)
[2018-07-25 12:16] LABS: PLATELET COUNT 203 10^3/uL (150-400)
[2018-07-25] MEDS ORDERED: LORazepam 2 MG/ML INJ ONE (12:16)
[2018-07-25] MEDS ORDERED: ACETAMINOPHEN 325 MG TAB PO PRN (13:36)
[2018-07-25] MEDS ORDERED: LORazepam 2 MG/ML INJ IVP PRN (13:38)
--- NOTE | 2018-07-25 13:44 | PDGENHP ---
History and Physical - Chief Complaint seizure - History of Present Illness 67 yo male with h/o seizure disorder secondary to previous stroke, along with A fib on chronic anticoagulation, ELLIOT and chronic low back pain presents to ED via EMS after an episode of acute pain followed by confusion. He was recently seen by his neurologist, Dr. Medrano, in 04/2018 at which time his Keppra was increased to 3,000 mg daily due to breakthrough seizures. While at the car dealership today, he suddenly felt confused after feeling severe back pain. EMS was called and after arriving in the ED, he had a tonic-clonic seizure. He did not strike his head. This was treated with IV Ativan. CT of his brain showed no hemorrhage or acute stroke, but stable encephalomalacia changes compared to prior MRI. He is post-ictal and ativan affected during my evaluation, but denies headaches, vision changes, CP, SOB, focal weakness or N/ V. Due to recurrent seizure, he is admitted for further evaluation. History Information - Allergies/Home Medication List Allergies/Adverse Reactions: shellfish derived Allergy (Severe, Verified 07/25/18 11:44) Swelling/neck,face,throat Sulfa (Sulfonamide Antibiotics) Allergy (Severe, Verified 07/25/18 11:44) Unknown tree nut [Nuts] Allergy (Verified 07/25/18 11:44) all fish, seafood Allergy (Severe, Uncoded 05/25/14 11:38) Swelling/neck,face,throat Home Medications: Fluticasone Nasal [Flonase Nasal Ball] 1 sprays EACHNARE DAILY PRN 06/02/11 [ Last Taken 03/19/18 08:00] Albuterol [Proventil Inhaler HFA (*)] 2 puffs IH Q4 PRN 05/18/14 [Last Taken 09/06 06:00] Losartan/Hydrochlorothiazide [Losartan-Hctz 100-25 mg Tab] 1 tab PO DAILY [Last Taken 07/25/18] Metoprolol Succinate Xr [Toprol Xl 100 mg (*)] 200 mg PO DAILY 05/18/14 [Last Taken 07/25/18] Montelukast Sodium [Singulair 10 mg (*)] 10 mg PO HS 05/18/14 [Last Taken 06:00] Omeprazole Magnesium [Prilosec Otc] 20 mg PO DAILY 05/18/14 [Last Taken 08:00] Valacyclovir HCl [Valtrex] 500 mg PO BID PRN 05/18/14 [Last Taken 03/13/18 08:00 ] Acetaminophen [Tylenol 325mg (*)] 650 mg PO TID 11/06/17 [Last Taken 02/26/18 20 :00] Apixaban [Eliquis] 5 mg PO BID 11/06/17 [Last Taken 07/25/18 09:00] Atorvastatin Calcium [Lipitor 20 mg (*)] 20 mg PO HS 11/06/17 [Last Taken ] Carboxymethylcellulose 1% [Refresh Celluvisc (*)] 1 drop EACHEYE DAILY PRN 11/06 [Last Taken 03/20/18 06:00] Zolpidem Tartrate [Ambien 5MG (*)] 10 mg PO HS PRN 11/06/17 [Last Taken 21:00] cycloSPORINE 0.05% [Restasis Opht Drops(*)] 1 drop EACHEYE BID 11/06/17 [Last Taken 07/25/18] levETIRAcetam [KEPPRA XR 750 mg] 2,250 tab PO DAILY 11/06/17 [Last Taken ] Multivitamins [Multivitamin (*)] 1 each PO DAILY 03/07/18 [Last Taken 03/19/18 08:00] Tadalafil [Cialis] 20 mg PO DAILY PRN 03/07/18 [Last Taken 03/12/18 20:00] Meloxicam 15 mg PO DAILY 03/20/18 [Last Taken 03/19/18 08:00] Mometasone 220Mcg Inhaler [Asmanex Inh (*)] 1 puffs IH BID 03/20/18 [Last Taken 07/25/18 09:00] Cyclobenzaprine [Flexeril 10 MG (*)] 10 mg PO TID PRN 07/25/18 [Last Taken 07/24] I have personally reviewed and updated: family history, medical history, social history, surgical history - Past Medical History atrial fibrillation, hypertension, hyperlipidemia, seizures Additional medical history: SSS s/p pacemaker, RV lead explanted 06/2018. ELLIOT on cpap. 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 Review of Systems Review of Systems: ROS: 10pt was reviewed & negative except for what was stated in HPI & below Physical Exam Physical Exam: Temp Pulse Resp BP Pulse Ox 36.6 C 96 22 H 122/90 H 100 07/25/18 11:38 07/25/18 12:45 07/25/18 12:45 07/25/18 12:45 07/25/18 12:45 Constitutional: no apparent distress Eyes: PERRL Ears, Nose, Mouth, Throat: moist mucous membranes Cardiovascular: regular rate and rhythym Respiratory: no respiratory distress, clear to auscultation Gastrointestinal: normoactive bowel sounds, soft, non-tender abdomen Skin: warm Musculoskeletal: full muscle strength Neurologic: AAOx3, CN II-XII Intact, other (no facial droop, normal speech, normal strength b/l UE's and LE's) Psychiatric: interacting appropriately Lab Data & Imaging Review 07/25/18 11:45 07/25/18 11:45 WBC 7.46 10^3/uL (3.80-9.50) 07/25/18 11:45 RBC 4.69 10^6/uL (4.40-6.38) 07/25/18 11:45 Hgb 15.4 g/dL (13.7-17.5) 07/25/18 11:45 POC Hgb 16.3 gm/dL (13.7-17.5) 07/25/18 11:56 Hct 43.6 % (40.0-51.0) 07/25/18 11:45 POC Hct 48 % (40-51) 07/25/18 11:56 MCV 93.0 fL (81.5-99.8) 07/25/18 11:45 MCH 32.8 pg (27.9-34.1) 07/25/18 11:45 MCHC 35.3 g/dL (32.4-36.7) 07/25/18 11:45 RDW 12.1 % (11.5-15.2) 07/25/18 11:45 Plt Count 203 10^3/uL (150-400) 07/25/18 11:45 MPV 10.4 fL (8.7-11.7) 07/25/18 11:45 Neut % (Auto) 72.5 % (39.3-74.2) 07/25/18 11:45 Lymph % (Auto) 19.2 % (15.0-45.0) 07/25/18 11:45 [place] % (Auto) 7.4 % (4.5-13.0) 07/25/18 11:45 Eos % (Auto) 0.1 % (0.6-7.6) L 07/25/18 11:45 Baso % (Auto) 0.5 % (0.3-1.7) 07/25/18 11:45 Nucleat RBC Rel Count 0.0 % (0.0-0.2) 07/25/18 11:45 Absolute Neuts (auto) 5.41 10^3/uL (1.70-6.50) 07/25/18 11:45 Absolute Lymphs (auto) 1.43 10^3/uL (1.00-3.00) 07/25/18 11:45 Absolute Monos (auto) 0.55 10^3/uL (0.30-0.80) 07/25/18 11:45 Absolute Eos (auto) 0.01 10^3/uL (0.03-0.40) L 07/25/18 11:45 Absolute Basos (auto) 0.04 10^3/uL (0.02-0.10) 07/25/18 11:45 Absolute Nucleated RBC 0.00 10^3/uL (0-0.01) 07/25/18 11:45 Immature Gran % 0.3 % (0.0-1.1) 07/25/18 11:45 Immature Gran # 0.02 10^3/uL (0.00-0.10) 07/25/18 11:45 POC Sodium 135 mEq/L (135-145) 07/25/18 11:56 Sodium 132 mEq/L (135-145) L 07/25/18 11:45 POC Potassium 3.5 mEq/L (3.3-5.0) 07/25/18 11:56 Potassium 4.2 mEq/L (3.5-5.2) 07/25/18 11:45 POC Chloride 100 mEq/L (97-110) 07/25/18 11:56 Chloride 100 mEq/L (97-110) 07/25/18 11:45 Carbon Dioxide 17 mEq/l (22-31) L 07/25/18 11:45 Anion Gap 15 mEq/L (6-14) H 07/25/18 11:45 POC BUN 10 mg/dL (7-23) 07/25/18 11:56 BUN 11 mg/dL (7-23) 07/25/18 11:45 Creatinine 0.7 mg/dL (0.7-1.3) 07/25/18 11:45 POC Creatinine 0.6 mg/dL (0.7-1.3) L 07/25/18 11:56 Estimated GFR > 60 07/25/18 11:45 Glucose 97 mg/dL (70-100) 07/25/18 11:45 POC Glucose 108 mg/dL (70-100) H 07/25/18 11:56 Calcium 9.7 mg/dL (8.5-10.4) 07/25/18 11:45 Assessment & Plan Assessment: Seizure disorder (Acute) - 2/2 prior CVA with encephalomalacia noted on CT, c/w prior MRI. He presents with breakthrough seizure, s/p IV Ativan in ED, now post -ictal. Reviewed outpt neurology notes, his Keppra was increased to 3,000 mg daily in 04/2018 due to breakthrough seizures. -admit to neuro floor -cont max dose keppra, likely add gabapentin as second agent given recurrent seizure -prn ativan for seizure -brain MRI with and without contrast -neurochecks, seizure precautions -discussed with Dr. Rahman, who will consult H/O CVA - no e/o acute CVA -on eliquis, statin Chronic LBP 2/2 spondylolysis and spondylolysthesis with sciatica - plans for surgery with Dr. Pena end of the month. He thinks his pain provokes seizure. -addition of gabapentin will likely be helpful for his sciatic nerve pain A fib - rate controlled, on eliquis SSS s/p pacemaker - recent RV lead extraction noted ELLIOT - home CPAP Hypertension - BP elevated on arrival, normotensive now -cont home metoprolol, losartan/hctz Hyperlipidemia - cont statin Hyponatremia - mild, could be related to hctz Metabolic acidosis - 2/2 sz, follow Full code DVT PPLX - SCD's Dispo - obs
[2018-07-25] MEDS ORDERED: ACETAMINOPHEN 500 MG TAB PO ONE (14:13)
[2018-07-25] MEDS ORDERED: CARBOXYMETHYLCELLULOSE 1% 0.4 ML DROPERETTE EACHEYE PRN (15:06)
[2018-07-25] MEDS ORDERED: DIAZEPAM 5 MG TAB PO PRN (15:06)
[2018-07-25] MEDS ORDERED: FLUTICASONE NASAL 120 SPRAYS/16 GM MDI EACHNARE PRN (15:06)
[2018-07-25] MEDS ORDERED: ALBUTEROL 60 PUFFS/8 GM MDI IH PRN (15:06)
[2018-07-25] MEDS ORDERED: ZOLPIDEM TARTRATE 5 MG TAB PO PRN (15:06)
[2018-07-25] MEDS ORDERED: GADOBUTROL 10 ML VIAL IVP ONE (17:44)
--- NOTE | 2018-07-25 19:39 | NEUROPROG ---
Assessment: [id number] - Neurology Consult: - CC: Dr. Alicea consulted neurology for seizures. Results placed in EMR for her review. - HPI: Initially seen 07/25/18 in [facility]. Pt with history of seizures from prior stroke. Followed by my colleague, Dr. West Medrano. Pt was on Keppra XR 3,000 mg qd and had not missed medications. Had breakthrough seizure on 07/25/18 in [facility] ER. Head CT showed no new changes. Will plan on adding gabapentin 300 mg TID for improved seizure control. Pt will f/u with Dr. Medrano to after discharge. - PMHx: seizure disorder, afib, HTN, HLD, SSS s/p pacemaker, ELLIOT on CPAP, chronic LBP - SHx: no tobacco FHx: muscular dystrophy - ROS: Pt denied acute fever, total vision loss, active severe chest pain, respiratory failure, total body severe rash, total bowel/bladder incontinence, psychosis, active seizures, or active bleeding - O: VS reviewed General: Alert Eyes: Fundoscopic exam not able to visualize optic disks CV: Heart RRR, no murmur, no carotid bruit Lungs: Clear to auscultation bilaterally, no rhonchi or rales Neuro: - Mental: . Oriented x person/place/date . concentration appears normal . speech fluency/comprehension normal . memory appears normal . fund of knowledge appear intact - Cranial Nerves: . II: PERRL, VFFTC . III/IV/: EOMI, no nystagmus, normal smooth pursuits, no Ptosis . V: facial sensation intact to LT . VII: face symmetric to eye closure and smile . VIII: hearing intact to conversation . IX/X: uvula raises symmetrically . XI: SCM 5/5 B/L strength . XII: tongue protrudes midline w/nl strength - Motor: . Tone: normal tone in all 4 extremity . Strength: no pronator drift, strength 5/5 throughout (B/L delt, bic, tri, hand marketing traffic coordinator, hf/he, df/pf) - Reflexes: B/L patella 2/4 - Sensory: all 4 extremity intact to light touch - Coord: [id number] wnl, JASIEL wnl, [id number] wnl - Gait: deferred - Labs: 07/25/18- CBC wnl, Chem Cr 0.6L Gluc 108 - Rads: 07/25/18- Head CT wo: no acute changes, old stroke noted compared to prior images (I Personally visualized the images on 07/25/18) - 07/25/18- Brain MRI wwo: Mild generalized cerebral cortical atrophy, with chronic microvascular ischemic gliosis 2. While there is no evidence of an acute or subacute infarct, there is a new small superior left frontal subcortical nonenhancing white matter hyperintensity, most suggestive of chronic microvascular ischemic gliosis. Because this has developed since the previous study of 2017, it may be worthwhile to consider follow-up MR reevaluation in 3-6 months. 3. Sequela of an old small inferolateral right cerebellar cortical infarct, similar to 2017. - Assessment: 1. Seizure Disorder from prior stroke: Last seizure 07/25/18. Normal neurologic exam 07/25/[address] stable w/o acute findings on 07/25/18. Brain MRI wwo did not show any acute changes as well. - Plan: - Continue Keppra XR 3000 mg qd for seizure prevention - Addition of gabapentin 300 mg TID for seizure prevention - Seizure precautions and no driving until seizure free for 90 days - F/U in 1-4 weeks with pts neurologist, Dr. West Medrano - No further neurologic w/u needed as inpatient, neurology will sign off Objective: Vital Signs Temp Pulse Resp BP Pulse Ox 36.4 C 71 16 152/78 H 94 07/25/18 19:28 07/25/18 19:28 07/25/18 19:28 07/25/18 19:28 07/25/18 19:28 07/24/18 07/25/18 07/26/18 05:59 05:59 05:59 Intake Total 1080 Output Total 0 Balance 1080 Allergies/Adverse Reactions: shellfish derived Allergy (Severe, Verified 07/25/18 11:44) Swelling/neck,face,throat Sulfa (Sulfonamide Antibiotics) Allergy (Severe, Verified 07/25/18 11:44) Unknown tree nut [Nuts] Allergy (Verified 07/25/18 11:44) all fish, seafood Allergy (Severe, Uncoded 05/25/14 11:38) Swelling/neck,face,throat
[2018-07-25] MEDS: APIXABAN 5 MG TAB PO SCH (20:13)
[2018-07-25] MEDS: cycloSPORINE 0.05% 30 DROPERETTE/BOX EACHEYE SCH (20:22)
[2018-07-25] MEDS: MOMETASONE 220MCG INHALER IH SCH (20:45)
[2018-07-25] MEDS ORDERED: MONTELUKAST SODIUM 10 MG TAB PO SCH (21:00)
[2018-07-25] MEDS ORDERED: ATORVASTATIN CALCIUM 20 MG TAB PO SCH (21:00)
[2018-07-25] MEDS: GABAPENTIN 300 MG CAP PO SCH ×2 (21:33→21:37)
[2018-07-26 07:23] VITALS: BP 150/78
[2018-07-26] MEDS: MOMETASONE 220MCG INHALER IH SCH (08:24)
[2018-07-26] MEDS ORDERED: levETIRAcetam 500 MG TAB PO SCH (09:00)
[2018-07-26] MEDS ORDERED: LOSARTAN/HCTZ 50/12.5 1 TAB PO SCH (09:00)
[2018-07-26] MEDS ORDERED: MONTELUKAST SODIUM 10 MG TAB PO SCH (09:00)
[2018-07-26] MEDS ORDERED: METOPROLOL SUCCINATE XR 100 MG TAB PO SCH (09:00)
[2018-07-26] MEDS ORDERED: ATORVASTATIN CALCIUM 20 MG TAB PO SCH (09:00)
[2018-07-26] MEDS ORDERED: PANTOPRAZOLE SODIUM 40 MG TAB PO SCH (09:00)
[2018-07-26] MEDS ORDERED: LEVETIRACETAM PO SCH (09:00)
[2018-07-26] MEDS: GABAPENTIN 300 MG CAP PO SCH (09:07)
[2018-07-26] MEDS: APIXABAN 5 MG TAB PO SCH (09:10)
[2018-07-26] MEDS: cycloSPORINE 0.05% 30 DROPERETTE/BOX EACHEYE SCH (09:12)
--- NOTE | 2018-07-26 16:58 | PDDCSUM ---
Discharge Summary Discharge Summary: Date of admission: 07/25/2018 Date of discharge: 07/26/2018 Discharge diagnoses: 1. seizure disorder with breakthrough seizure 2. h/o CVA with encephalomalacia 3. chronic LBP with sciatica 4. atrial fibrillation 5. chronic anticoagulation Hx: 67 yo male with h/o prior stroke and subsequent seizure disorder presented to ED with acute confusional episode. Upon arrival to the ED, he had a witnessed seizure which resolved with Ativan. His Keppra was recently increased to 3,000 mg daily. He is followed by Dr. Medrano. CT brain was negative for bleed and showed no acute changes, but chronic encephalomalacia was noted from old CVA. Hospital course: He was admitted to med/surg with neurochecks and seizure precautions. Brain MRI revealed nothing acute. Neurology consult was obtained and the addition of Gabapentin was added 300 mg tid. He had no further seizures. Gabapentin will likely also be helpful for his chronic LBP with neuropathic symptoms. I recommended he decrease his alcohol intake as Gabapentin with etoh can contribute to [employer] depression. He has plans for surgery with Dr. Pena at the end of this month for his lumbar spine disease. He will follow up with Dr. Medrano in the outpatient clinic for follow up on this seizure disorder. F/U: Dr. Medrano, neurology, Dr. Pena, neurosurgery DC meds: see [employer] for complete med list. New meds include Gabapentin 300 mg TID. Cont all other outpt medications as previously prescribed.
== END 2018-07-26 11:03 | disposition home or self-care (01) ==
LOC: EDUNIT# → F3N 16:19
PROVIDERS: ADMIT Hospitalist; ATTEND Hospitalist
DX: G40.901 Epilepsy, unspecified, not intractable, with status epilepticus (principal); I69.998 Other sequelae following unspecified cerebrovascular disease; R90.89 Other abnormal findings on diagnostic imaging of central nervous system; E86.9 Volume depletion, unspecified; I10 Essential (primary) hypertension; M47.26 Other spondylosis with radiculopathy, lumbar region; I48.91 Unspecified atrial fibrillation; I49.5 Sick sinus syndrome; E78.5 Hyperlipidemia, unspecified; G47.33 Obstructive sleep apnea (adult) (pediatric); J45.909 Unspecified asthma, uncomplicated; Z79.01 Long term (current) use of anticoagulants; Z95.0 Presence of cardiac pacemaker; Z82.8 Family history of other disabilities and chronic diseases leading to disablement, not elsewhere classified
CPT/HCPCS: 70450; 70553; 96361; 96374; 99285; A9585; G0378; J2060; 82435-PO; 82565-PO; 82947-PO; 84132-PO; 84295-PO; 84520-PO; 85014-PO

== ENCOUNTER 2018-08-16 07:34 | Inpatient (IN) | payer OTHER ==
--- NOTE | 2018-08-16 08:02 | PDHPUP ---
History & Physical Update H&P update statement: This history and physical update is based on an assessment of the patient which was completed after admission or registration (within 24 hours), but prior to the surgery/procedure. H&P update: H&P reviewed & patient examined, no change in patient's condition since H&P completed (Consents signed and site marked. All questions answered.)
[2018-08-16] MEDS ORDERED: BUPIVACAINE/EPI 0.25% 30 ML SDV ONE (08:05)
[2018-08-16] MEDS ORDERED: CHLORHEXIDINE GLUC HIBICLENS 118 ML BTL TP ONE (08:05)
[2018-08-16] MEDS ORDERED: THROMBIN (BOVINE) 20,000 UNIT VIAL TP ONE (08:05)
[2018-08-16] MEDS ORDERED: BACITRACIN 50,000 UNITS/10 ML SYR IRR ONE (08:06)
[2018-08-16] MEDS ORDERED: LR 1,000 ML IV ONE (08:19)
[2018-08-16] MEDS ORDERED: MIDAZOLAM 2 MG/2 ML VIAL IVP ONE (09:01)
--- NOTE | 2018-08-16 09:04 | PDANEPAE ---
ANE History of Present Illness L2/5 TLIF for spinal stenosis ANE Past Medical History - Cardiovascular History Hx Hypertension: Yes Hx Arrhythmias: Yes Hx Coronary Artery / Peripheral Vascular Disease: No Hx CHF / Valvular Disease: No Cardiovascular History Comment: Sister of [place] age54. Pacemaker for sick sinus syndrome-a paced 12%, v lead broken - Pulmonary History Hx COPD: No Hx Asthma/Reactive Airway Disease: Yes Hx Recent Upper Respiratory Infection: No Hx Oxygen in Use at Home: No Hx Sleep Apnea: Yes Sleep Apnea Screening Result - Last Documented: Positive Pulmonary History Comment: mild asthma-inhalers. - Neurologic History Hx Cerebrovascular Accident: No Hx Seizures: No Hx Dementia: No Neurologic History Comment: 2009-1x siezure, neg. workup. - Endocrine History Hx Diabetes: No Endocrine History Comment: none - Renal History Hx Renal Disorders: Yes Renal History Comment: kidney stonesx1-lithotrypsy. - Liver History Hx Hepatic Disorders: No - Neurological & Psychiatric Hx Hx Neurological and Psychiatric Disorders: No - Cancer History Hx Cancer: No - Congenital Disorder History Hx Congenital Disorders: No - GI History Hx Gastrointestinal Disorders: Yes Gastrointestinal History Comment: Gerd-esophageal dilitation. Benign polyps. - Other Health History Other Health History: Dry eyes-drops. Occ. nosebleeds.Severe skin dryness-med cream. Joint&spinal arthritis. - Chronic Pain History Chronic Pain: Yes (back) - Surgical History Prior Surgeries: 1998-R knee scope. 1995-L knee scope. 1993-R elbow. 1999- kidney lithotrypsy. 1997-esophageal dilitation. 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 Date Pacemaker Last Checked: 11/08/2017 ANE Patient History - Allergies Allergies/Adverse Reactions: shellfish derived Allergy (Severe, Verified 07/25/18 11:44) Swelling/neck,face,throat Sulfa (Sulfonamide Antibiotics) Allergy (Severe, Verified 07/25/18 11:44) Unknown tree nut [Nuts] Allergy (Verified 07/25/18 11:44) all fish, seafood Allergy (Severe, Uncoded 05/25/14 11:38) Swelling/neck,face,throat - Home Medications Home medications: home medication list seen and reviewed Home Medications: Fluticasone Nasal [Flonase Nasal [place]] 1 sprays EACHNARE DAILY PRN 06/02/11 [ Last Taken 08/16/18] Albuterol [Proventil Inhaler HFA (*)] 2 puffs IH Q4 PRN 05/18/14 [Last Taken ] Losartan/Hydrochlorothiazide [Losartan-Hctz 100-25 mg Tab] 1 tab PO DAILY [Last Taken 08/15/18] Metoprolol Succinate Xr [Toprol Xl 100 mg (*)] 200 mg PO DAILY 05/18/14 [Last Taken 08/16/18] Montelukast Sodium [Singulair 10 mg (*)] 10 mg PO DAILY 05/18/14 [Last Taken ] Omeprazole Magnesium [Prilosec Otc] 20 mg PO DAILY 05/18/14 [Last Taken 08/16/18 ] Valacyclovir HCl [Valtrex] 500 mg PO BID PRN 05/18/14 [Last Taken 08/13/18] Acetaminophen [Tylenol 325mg (*)] 650 mg PO TID 11/06/17 [Last Taken 08/15/18] Apixaban [Eliquis] 5 mg PO BID 11/06/17 [Last Taken 08/14/18] Atorvastatin Calcium [Lipitor 20 mg (*)] 20 mg PO DAILY 11/06/17 [Last Taken ] Carboxymethylcellulose 1% [Refresh Celluvisc (*)] 1 drop EACHEYE DAILY PRN 11/06 [Last Taken 08/16/18] Zolpidem Tartrate [Ambien 5MG (*)] 10 mg PO HS PRN 11/06/17 [Last Taken 08/15/18 ] cycloSPORINE 0.05% [Restasis Opht Drops(*)] 1 drop EACHEYE BID 11/06/17 [Last Taken 08/16/18] levETIRAcetam [KEPPRA XR 750 mg] 2,250 tab PO DAILY 11/06/17 [Last Taken ] Multivitamins [Multivitamin (*)] 1 each PO DAILY 03/07/18 [Last Taken 06/17/18] Tadalafil [Cialis] 20 mg PO DAILY PRN 03/07/18 [Last Taken 08/13/18] Meloxicam 15 mg PO DAILY 03/20/18 [Last Taken 08/09/18] Mometasone 220Mcg Inhaler [Asmanex Inh (*)] 1 puffs IH BID 03/20/18 [Last Taken 08/16/18] Cyclobenzaprine [Flexeril 10 MG (*)] 10 mg PO TID PRN 07/25/18 [Last Taken 08/14] - NPO status NPO Status: no food or drink >8 hours (black coffee 0600) NPO Since - Liquids (Date): 08/16/18 NPO Since - Liquids (Time): 06:00 NPO Since - Solids (Date): 08/15/18 NPO Since - Solids (Time): 19:00 - Anes Hx Anes Hx: no prior problems - Smoking Hx Smoking Status: Never smoked - Alcohol Use Alcohol Use: Rarely - Family Anes Hx Family Anes Hx: none Family Hx Anesthesia Complications: no ANE Labs/Vital Signs - Labs - CBC WBC: reviewed - Vital Signs Blood Pressure: 124/77 Heart Rate: 60 Respiratory Rate: 16 O2 Sat (%): 98 Height: 180.34 cm Weight: 79.832 kg ANE Physical Exam - Airway Neck exam: FROM Mallampati Score: Class 2 Mouth exam: normal dental/mouth exam - Pulmonary Pulmonary: no respiratory distress - Cardiovascular Cardiovascular: regular rate and rhythym - ASA Status ASA Status: II ANE Anesthesia Plan Anesthesia Plan: general endotracheal anesthesia (+/- a-line, head up, BP for eye perfusion)
[2018-08-16] MEDS ORDERED: CITRATE DEXTROSE SOLN 500 ML BAG ONE (09:09)
[2018-08-16] MEDS ORDERED: ACETAMINOPHEN 500 MG TAB PO ONE (09:20)
[2018-08-16] MEDS ORDERED: ceFAZolin 2 GM/DEXTROSE 100 ML IV ONE (09:20)
[2018-08-16] MEDS ORDERED: morphINE PF 0.2 MG in SYRINGE INTRATHECAL 1 SYR IT ONE (09:20)
[2018-08-16] MEDS ORDERED: GABAPENTIN 300 MG CAP PO ONE (09:20)
[2018-08-16] MEDS ORDERED: ONDANSETRON 4 MG/2 ML VIAL ONE (09:35)
[2018-08-16] MEDS ORDERED: PROPOFOL/EMULSION 500 MG/50 ML BOTTLE IV ONE ×2 (09:35→12:12)
[2018-08-16] MEDS ORDERED: fentaNYL 100 MCG/2 ML INJ ONE ×2 (09:35→15:09)
[2018-08-16] MEDS ORDERED: DEXAMETHASONE 4 MG/ML VIAL ONE ×2 (09:35)
[2018-08-16] MEDS ORDERED: REMIFENTANIL HCL 1 MG VIAL ONE ×2 (09:35→12:11)
[2018-08-16] MEDS ORDERED: LIDOCAINE 2% 100 MG/5 ML SYR ONE (09:36)
[2018-08-16] MEDS ORDERED: ROCURONIUM 50 MG/5 ML VIAL ONE (10:39)
[2018-08-16] MEDS ORDERED: BACITRACIN ZINC 0.5 OZ OINTTUBE TP ONE (14:34)
[2018-08-16] MEDS ORDERED: TADALAFIL 20 MG PO PRN (14:46)
[2018-08-16] MEDS ORDERED: CARBOXYMETHYLCELLULOSE 1% 0.4 ML DROPERETTE EACHEYE PRN (14:46)
[2018-08-16] MEDS ORDERED: ALBUTEROL 60 PUFFS/8 GM MDI IH PRN (14:46)
[2018-08-16] MEDS ORDERED: LACTULOSE 20 GM/30 ML UDCUP PO PRN (14:50)
[2018-08-16] MEDS ORDERED: ONDANSETRON 4 MG/2 ML VIAL IVP PRN (14:50)
[2018-08-16] MEDS ORDERED: MAGNESIUM HYDROXIDE 30 ML UDCUP PO PRN (14:50)
[2018-08-16] MEDS ORDERED: BISACODYL 10 MG SUPP PR PRN (14:50)
[2018-08-16] MEDS ORDERED: ONDANSETRON DISINTEGRATING 4 MG TAB PO PRN (14:50)
[2018-08-16] MEDS ORDERED: diphenhydrAMINE 25 MG CAP PO PRN (14:50)
[2018-08-16] MEDS ORDERED: POLYETHYLENE GLYCOL 3350 17 GM PKT PO PRN (14:50)
[2018-08-16] MEDS ORDERED: HYDROmorphONE/DILAUDID 2 MG/ML INJ ONE (15:10)
--- NOTE | 2018-08-16 15:29 | POSTOPPROG ---
Post Op Note Date of Operation: 08/16/18 Surgeon: Yosi Pena Agricultural Extension Agent: ALIVIA Godoy PAC Anesthesia: GET(General Endotracheal) Pre-op Diagnosis: Lumbar stenosis Post-op Diagnosis: Lumbar stenosis Indication: Lumbar stenosis/pars defect Procedure: L3-S1 lami/TLIF/PSF, repair of small durotomy repair Inf/Abcess present in the surg proc area at time of surgery?: No EBL: 50-100 Drains: Dave LEAHY Addendum - Addendum .: S: Resting comfortably O: NAD A&Ox3 MAEx4 5/5 and equal in BUE and BLE. Incision flat/clean and dry A/P 67y/o s/p L3-S1 lami with left sided TLIF, PSF L3-S1, repair of small durotomy repair -Advance diet as tolerated -HOB flat until 08/19, okay to bend knees, roll from side to side -Bowel protocol, no straining for 2 weeks post op -Pulmonary toliet, encouraged frequent IS -Optimize pain management -DVT prophx: TEDs, SCDs, Lovenox okay POD1, okay to restart Eliquis POD7 -Post op xrays pending for when patient is up right - RUPA to full suction -Pleae notify NS with any change in neuro/motor exam
--- NOTE | 2018-08-16 16:09 | PDMN ---
Medical Necessity Medical necessity: [facility] [place] S820 Lumbar Fusion: 67 yo s/p Left L3/4, L4/5, L5/S1 TLIF , L5?S1 Desai Lum Pinto Posterior, L3-5 decompression, L3-S1 fusion w/ stealth. IP only
[2018-08-16] MEDS ORDERED: valACYclovir 500 MG TAB PO PRN (17:00)
--- NOTE | 2018-08-16 17:02 | POSTANESTH ---
Post Anesthetic Evaluation Cardiovascular Status: Normal, Stable Respiratory Status: Normal, Stable, Tx Decrease in SpO2 (mild post op hypoxia) Level of Consciousness/Mental Status: Can Participate in Eval Pain Control: Adequate, Prn Tx Ordered Nausea/Vomiting Control: Adequate, Prn Tx Ordered Complications Possibly Related to Anesthesia: None Noted
[2018-08-16] MEDS ORDERED: NALOXONE HCL 0.4 MG/ML INJ IVP PRN (17:16)
[2018-08-16] MEDS: GABAPENTIN 300 MG CAP PO SCH ×2 (18:55→22:50)
[2018-08-16] MEDS: ACETAMINOPHEN 325 MG TAB PO SCH ×2 (18:55→22:50)
--- NOTE | 2018-08-16 20:00 | GOP ---
DATE OF OPERATION: 08/16/2018 SURGEON: Yosi Pena MD OCCUPATIONAL HEALTH AND SAFETY MANAGER: Teri Godoy PA-C. PREOPERATIVE DIAGNOSIS: 1. L3 through S1 lumbar spondylosis with spinal stenosis. 2. Left lower extremity radiculopathy with weakness. 3. Treatment refractory to nonoperative intervention. 4. L5-S1 spondylolysis. POSTOPERATIVE DIAGNOSIS: 1. L3 through S1 lumbar spondylosis with spinal stenosis. 2. Left lower extremity radiculopathy with weakness. 3. Treatment refractory to nonoperative intervention. 4. L5-S1 spondylolysis. 5. Osteopenia/osteoporosis PROCEDURE PERFORMED: 1. Posterior arthrodesis with approach to L3-L4-L5-S1. 2. Posterolateral fusion with bilateral pedicle screw placement at L3, L4, L5, and S1 from [employer] 4.75 system. 3. Decompressive laminectomy, with bilateral medial facetectomies, L3-L4 and L4 -L5 with left-sided L3-L4 and L4-L5 facetectomies. 4. Desai laminectomy, L5-S1. 5. Posterolateral fusion on the right between L3 and S1 with morselized autograft and allograft. 6. Use of intraoperative 3D Stealth navigation. 7. Use of intraoperative fluoroscopy, less than 1 hour physician time. 8. Use of neuromonitoring. 9. Use of the operating microscope. 10. Injection of preservative-free intrathecal narcotics. FINDINGS: per imaging COMPLICATIONS: A small dural tear was achieved in the middle of the dura at the L4-5 level which was closed primarily with a 5-0 Prolene suture. SPECIMENS: None. INDICATIONS: This is a very pleasant, 67-year-old gentleman who presents with worsening low back pain with right lower extremity radiculopathy and weakness. He had spondylosis L3 through S1 with pars defect at L5-S1. After discussion of risks, benefits, and treatment alternatives and after failing nonoperative interventions, we decided to proceed forth with surgery as described above. DESCRIPTION OF PROCEDURE: The patient brought to the operating theater and underwent general endotracheal anesthesia without complications. He had Venodynes, VAN hose and the appropriate lines placed by Anesthesia. He was flipped prone on the Dave table. All bony processes inspected and padded. The lower lumbar region was prepped and draped in usual sterile surgical fashion. A time-out was completed per protocol. The patient received antibiotics within 1 hour of incision. Using lateral fluoroscopy and a spinal needle, we picked our entry point at the L3 through S1 levels. This was marked in the midline. The incision was infiltrated with Marcaine with epinephrine. The incision was taken down with the scalpel blade, and using monopolar, taken down to the midline through the lumbodorsal fascia. A subperiosteal dissection was carried out to the transverse process of L3, L4, L5, and S1. Care was taken to preserve the bilateral L2-3 facet joint. Deep retractors were placed to maintain our exposure and we confirmed our level using lateral fluoroscopy. We attached the 3D Stealth navigation clamp to the spinous process of L4 and completed a 3D Stealth navigation spin. Using 3D navigation we placed the check pilot holes for the bilateral pedicle screws at L3, L4, L5, and S1. All holes were manually palpated with no evidence of any cortical breaches. We then tapped and placed 6.5 x 55 mm screws bilaterally at L3, 6.5 x 50 mm screws bilaterally at L4, right-sided L5, bilaterally in S1 and 6.5 x 45 mm screw on the left at L5 from [employer] 4.75 system. Another 3D Stealth navigation spin demonstrated excellent position of the hardware. At this point, the microscope was brought into the field to assist with microscopic dissection and to maintain illumination and magnification. Using a combination of bur tip on the drill bit, Kerrison punches and Leksell rongeur, we completed decompressive laminectomy with bilateral medial facetectomies, L3- L4, L4-L5. During the laminectomy at L4-5 level, a small dural pinhole was achieved from a bony spicule which we then closed with a 5-0 Prolene suture. We resected the facet joint on the left side, L3-L4 and L4-L5 and we completed a Desai laminectomy and decompression at L5-S1. We then moved down to the L3-4 level where we distracted the disk space on the left side. We completed a left- sided L3-4 diskectomy. We prepared the cartilaginous endplates and measured the interbody space. We then placed a 7 x 26 mm titanium coated PEEK cage filled with morselized autograft and allograft anteriorly and towards the midline. We packed additional morcellized autograft in the disc space for the interbody fusion. We let down the distraction and moved down to the L4-5 level. We distracted the disc space and completed a left-sided L4-5 diskectomy. We prepared the cartilaginous endplates and measured the interbody space. We then placed a 7 x 26 mm PEEK cage filled with morselized autograft and allograft anteriorly and towards the midline. We packed additional morcellized autograft in the disk space for the interbody fusion. We let down the distraction and moved down to the L5-S1 level. We distracted the disk space and completed left-sided L5-S1 diskectomy. We prepared the cartilaginous endplates and measured the interbody space. We then placed an 8 to 12 x 28 mm titanium PEEK elevate cage filled with morselized autograft and allograft anteriorly and toward the midline. We packed additional morcellized autograft in the disc space for the interbody fusion. We let down the distraction and decorticated bone on the right side between L3 and S1. Two lordotic rods were placed in the heads of the screws between L3-S1 , and secured down with cap screws which were tightened per the medical affairs director's setting. We irrigated the wound copiously with bacitracin irrigation. We then decorticated the right-sided L3-S1 and laid down morselized autograft and allograft between L3-L4 for postop fusion. Two lordotic rods were placed into the heads of the screws between L3 and S1 and secured down with cap screws which were tightened per manufacture's setting. We placed a small layer of Surgicel and DuraSeal over the exposed dural repair. A drain was left in the subfascial space. The wound was then closed in multiple layers including Vicryl sutures for the deep layers and Dermabond for the skin. The patient's wounds were dressed sterilely. He was flipped supine onto the transfer cart, was awakened, extubated and taken to recovery room in stable condition. There were no complications and no noted changes on neuromonitoring throughout the procedure. /[id number]/MODL MTDD
[2018-08-16] MEDS: SENNOSIDES/DOCUSATE SODIUM TAB PO SCH (20:43)
[2018-08-16] MEDS: FAMOTIDINE 20 MG TAB PO SCH (20:44)
[2018-08-16] MEDS ORDERED: ACETAMINOPHEN 500 MG TAB PO SCH (22:00)
[2018-08-16] MEDS: MOMETASONE 220MCG INHALER IH SCH (22:13)
[2018-08-16] MEDS: cycloSPORINE 0.05% 30 DROPERETTE/BOX EACHEYE SCH (23:19)
[2018-08-17] MEDS: CYCLOBENZAPRINE 10 MG TAB PO PRN ×3 (05:23→23:56)
[2018-08-17] MEDS: MOMETASONE 220MCG INHALER IH SCH ×2 (07:47→20:47)
[2018-08-17] MEDS: oxyCODONE IR 5 MG TAB PO PRN ×6 (07:48→23:52)
[2018-08-17] MEDS: LEVETIRACETAM 750 MG PO SCH (08:28)
[2018-08-17] MEDS: LOSARTAN/HCTZ 50/12.5 1 TAB PO SCH (08:30)
[2018-08-17] MEDS: GABAPENTIN 300 MG CAP PO SCH ×3 (08:31→21:09)
[2018-08-17] MEDS: SENNOSIDES/DOCUSATE SODIUM TAB PO SCH ×2 (08:31→21:09)
[2018-08-17] MEDS: ATORVASTATIN CALCIUM 20 MG TAB PO SCH (08:31)
[2018-08-17] MEDS: PANTOPRAZOLE SODIUM 40 MG TAB PO SCH (08:32)
[2018-08-17] MEDS: METOPROLOL SUCCINATE XR 100 MG TAB PO SCH (08:32)
[2018-08-17] MEDS: FAMOTIDINE 20 MG TAB PO SCH ×2 (08:32→21:09)
[2018-08-17] MEDS: ACETAMINOPHEN 325 MG TAB PO SCH ×2 (08:32→15:36)
[2018-08-17] MEDS: cycloSPORINE 0.05% 30 DROPERETTE/BOX EACHEYE SCH ×2 (08:35→21:11)
--- NOTE | 2018-08-17 09:12 | NEUSURGPN ---
<Rob Romero - Last Filed: 08/17/18 09:09> Assessment/Plan: A/P 67y/o s/p L3-S1 lami with left sided TLIF, PSF L3-S1, repair of small durotomy repair -Advance diet as tolerated -HOB flat until 08/19, okay to bend knees, roll from side to side -OK HOB to 10degrees for meals, otherwise flat. -Bowel protocol, no straining for 2 weeks post op -Pulmonary toliet, encouraged frequent IS -Optimize pain management -DVT prophx: TEDs, SCDs, Lovenox okay POD1, okay to restart Eliquis POD7 -Post op xrays pending for when patient is up right - RUPA to full suction -Pleae notify NS with any change in neuro/motor exam Subjective: doing OK. Worried with problems from having to lay down. Pain controlled. Objective: NAD VSS cnii-xii grossly intact eomi, pearla MAEx4, 5/5= SILT incision CDI, JPx1, to full suction, dark serosanginous Catheter Insertion Date: 08/16/18 Neurosurgery Physical Exam - Vitals, I&O, Labs I and O 08/16/18 08/17/18 08/18/18 05:59 05:59 05:59 Intake Total 2120 Output Total 2270 Balance -150 Weight 79.832 kg Intake: Oral (ml) 520 IV Intake (ml) 1600 Output: Urine (ml) 1950 Catheter 1950 Estimated Blood Loss (ml) 200 RUPA Drain Output (ml) 120 Back Dave Christian 120 Vital Signs Temp Pulse Resp BP Pulse Ox 36.8 C 69 14 147/73 H 100 08/17/18 08:00 08/17/18 08:00 08/17/18 08:00 08/17/18 08:00 08/17/18 08:00 ICD10 Worksheet Patient Problems: Problems Problem Status Onset Low back pain Acute Osteoarthritis of knee Acute Seizure disorder Acute <Yosi Pena - Last Filed: 08/17/18 11:17> Assessment/Plan: I met with the patient and his this morning. All questions answered. Will plan to raise HOB on Sunday and hopefully dc Sunday if he does well. Neurosurgery Physical Exam - Vitals, I&O, Labs I and O 08/16/18 08/17/18 08/18/18 05:59 05:59 05:59 Intake Total 2120 Output Total 2270 Balance -150 Weight 79.832 kg Intake: Oral (ml) 520 IV Intake (ml) 1600 Output: Urine (ml) 1950 Catheter 1950 Estimated Blood Loss (ml) 200 RUPA Drain Output (ml) 120 Back Dave Christian 120 Vital Signs Temp Pulse Resp BP Pulse Ox 36.8 C 69 14 147/73 H 100 08/17/18 08:00 08/17/18 08:00 08/17/18 08:00 08/17/18 08:00 08/17/18 08:00
[2018-08-17] MEDS: MONTELUKAST SODIUM 10 MG TAB PO SCH (09:34)
[2018-08-17] MEDS: MULTIVITAMINS 1 EACH TAB PO SCH (09:34)
[2018-08-17] MEDS: DIAZEPAM 5 MG TAB PO PRN (10:47)
[2018-08-17] MEDS: ENOXAPARIN 40 MG/0.4 ML SYR SC SCH (15:40)
[2018-08-17] MEDS: ACETAMINOPHEN 500 MG TAB PO SCH ×2 (15:55→21:10)
[2018-08-17] MEDS ORDERED: ENOXAPARIN 40 MG/0.4 ML SYR SC SCH (16:00)
--- NOTE | 2018-08-17 16:17 | ASMTCMCOM ---
CM Note CM Note Notes: Pt admitted for L3-S1 laminectomy on 08/16 in the setting of Spondylolisthesis. Pt lives with spouse in [place]. Pt is currently on bedrest and has no orders for therapy yet. D/C needs TBD. CM to follow. D/C Plan: TBD Date Signed: 08/17/2018 04:16 PM Electronically Signed By:Mohini Pablo
[2018-08-18] MEDS: oxyCODONE IR 5 MG TAB PO PRN ×4 (04:09→22:06)
[2018-08-18] MEDS: MULTIVITAMINS 1 EACH TAB PO SCH (08:50)
[2018-08-18] MEDS: ATORVASTATIN CALCIUM 20 MG TAB PO SCH (08:50)
[2018-08-18] MEDS: LOSARTAN/HCTZ 50/12.5 1 TAB PO SCH (08:50)
[2018-08-18] MEDS: PANTOPRAZOLE SODIUM 40 MG TAB PO SCH (08:50)
[2018-08-18] MEDS: MONTELUKAST SODIUM 10 MG TAB PO SCH (08:50)
[2018-08-18] MEDS: ACETAMINOPHEN 500 MG TAB PO SCH ×3 (08:50→22:00)
[2018-08-18] MEDS: GABAPENTIN 300 MG CAP PO SCH ×3 (08:51→22:00)
[2018-08-18] MEDS: METOPROLOL SUCCINATE XR 100 MG TAB PO SCH (08:51)
[2018-08-18] MEDS: FAMOTIDINE 20 MG TAB PO SCH ×2 (08:51→22:00)
[2018-08-18] MEDS: ENOXAPARIN 40 MG/0.4 ML SYR SC SCH (08:52)
[2018-08-18] MEDS: LEVETIRACETAM 750 MG PO SCH (08:56)
[2018-08-18] MEDS: MOMETASONE 220MCG INHALER IH SCH ×2 (09:47→18:02)
--- NOTE | 2018-08-18 09:53 | NEUSURGPN ---
Date of Surgery: 08/16/18 Post Op Day: 2 Assessment/Plan: A/P 67y/o s/p L3-S1 lami with left sided TLIF, PSF L3-S1, repair of small durotomy repair -Advance diet as tolerated -HOB flat until 08/19, okay to bend knees, roll from side to side -OK HOB to 10degrees for meals, otherwise flat. -Bowel protocol, no straining for 2 weeks post op -Pulmonary toliet, encouraged frequent IS -Optimize pain management-minimize intoxicating effects, pt appears overmedicated this am, will dc IV. -DVT prophx: TEDs, SCDs, Lovenox okay POD1, okay to restart Eliquis POD7 -Post op xrays pending for when patient is up right - RUPA to full suction, likely out later today. -Pleae notify NS with any change in neuro/motor exam Subjective: still with back pain, complains of 8/10. at bedside. Objective: NAD mild delirium, over medicated. VSS cnii-xii grossly intact eomi, pearla MAEx4, 5/5= SILT incision CDI, JPx1, to full suction, dark serosanginous, 245 out last 24. Urinary Catheter in Place: Yes Urinary Catheter Indication: Other (Use Comment) (immobility and retention) Catheter Insertion Date: 08/16/18 - Physician Discussed Patient with : Jean Neurosurgery Physical Exam - Vitals, I&O, Labs I and O 08/17/18 08/18/18 08/19/18 05:59 05:59 05:59 Intake Total 2120 1100 Output Total 2270 2695 Balance -150 -1595 Weight 79.832 kg Intake: Oral (ml) 520 1100 IV Intake (ml) 1600 Output: Urine (ml) 1950 2450 Catheter 1950 2450 Estimated Blood Loss (ml) 200 RUPA Drain Output (ml) 120 245 Back Dave Christian 120 245 Vital Signs Temp Pulse Resp BP Pulse Ox 37.0 C 65 16 139/67 H 96 08/18/18 08:00 08/18/18 08:51 08/18/18 08:00 08/18/18 08:51 08/18/18 08:00 ICD10 Worksheet Patient Problems: Problems Problem Status Onset Low back pain Acute Osteoarthritis of knee Acute Seizure disorder Acute
[2018-08-18] MEDS: cycloSPORINE 0.05% 30 DROPERETTE/BOX EACHEYE SCH (10:35)
[2018-08-18] MEDS: SENNOSIDES/DOCUSATE SODIUM TAB PO SCH ×2 (10:36→22:01)
[2018-08-18] MEDS: CYCLOBENZAPRINE 10 MG TAB PO PRN ×2 (10:43→18:20)
[2018-08-19] MEDS: cycloSPORINE 0.05% 30 DROPERETTE/BOX EACHEYE SCH ×3 (03:43→20:31)
[2018-08-19] MEDS: oxyCODONE IR 5 MG TAB PO PRN ×5 (05:02→21:54)
[2018-08-19] MEDS: CYCLOBENZAPRINE 10 MG TAB PO PRN ×2 (05:03→13:52)
--- NOTE | 2018-08-19 08:11 | NEUSURGPN ---
Assessment/Plan: A/P 67y/o s/p L3-S1 lami with left sided TLIF, PSF L3-S1, repair of small durotomy repair -Raise HOB to 10degrees an hour starting at 10am. -Bowel protocol, no straining for 2 weeks post op -Pulmonary toilet, encouraged frequent IS -Optimize pain management-minimize sedation. Patient is a bit confused this morning -DVT prophx: TEDs, SCDs, Lovenox okay POD1, okay to restart Eliquis POD7 -Post op xrays pending for when patient is up right -Please notify NS with any change in neuro/motor exam Subjective: Denies any pain Objective: NAD mild confusion MAEx4, 5/5= SILT incision CDI, Catheter Insertion Date: 08/16/18 - Physician Discussed Patient with : Jean Neurosurgery Physical Exam - Vitals, I&O, Labs I and O 08/18/18 08/19/18 08/20/18 05:59 05:59 05:59 Intake Total 1100 Output Total 2695 1350 Balance -1595 -1350 Intake: Oral (ml) 1100 Output: Urine (ml) 2450 1300 Catheter 2450 1300 RUPA Drain Output (ml) 245 50 Back Dave Christian 245 50 Other: Intake Quantity Yes Sufficient Vital Signs Temp Pulse Resp BP Pulse Ox 36.4 C 78 18 145/74 H 95 08/19/18 04:00 08/19/18 04:00 08/19/18 04:00 08/19/18 04:00 08/19/18 04:00 ICD10 Worksheet Patient Problems: Problems Problem Status Onset Low back pain Acute Osteoarthritis of knee Acute Seizure disorder Acute
[2018-08-19] MEDS: MOMETASONE 220MCG INHALER IH SCH ×2 (08:20→20:41)
[2018-08-19] MEDS: LOSARTAN/HCTZ 50/12.5 1 TAB PO SCH (09:04)
[2018-08-19] MEDS: ENOXAPARIN 40 MG/0.4 ML SYR SC SCH (09:04)
[2018-08-19] MEDS: GABAPENTIN 300 MG CAP PO SCH ×3 (09:09→20:30)
[2018-08-19] MEDS: LEVETIRACETAM 750 MG PO SCH (09:11)
[2018-08-19] MEDS: MULTIVITAMINS 1 EACH TAB PO SCH (09:20)
[2018-08-19] MEDS: ATORVASTATIN CALCIUM 20 MG TAB PO SCH (10:23)
[2018-08-19] MEDS: ACETAMINOPHEN 500 MG TAB PO SCH ×3 (10:23→23:00)
[2018-08-19] MEDS: PANTOPRAZOLE SODIUM 40 MG TAB PO SCH (10:24)
[2018-08-19] MEDS: METOPROLOL SUCCINATE XR 100 MG TAB PO SCH (10:25)
[2018-08-19] MEDS: FAMOTIDINE 20 MG TAB PO SCH ×2 (10:25→20:31)
[2018-08-19] MEDS: MONTELUKAST SODIUM 10 MG TAB PO SCH (10:27)
[2018-08-19] MEDS: SENNOSIDES/DOCUSATE SODIUM TAB PO SCH ×2 (10:27→20:40)
[2018-08-19] MEDS: DIAZEPAM 5 MG TAB PO PRN (10:42)
[2018-08-20] MEDS: CYCLOBENZAPRINE 10 MG TAB PO PRN ×3 (01:51→20:50)
[2018-08-20] MEDS: oxyCODONE IR 5 MG TAB PO PRN (06:02)
[2018-08-20] MEDS: LOSARTAN/HCTZ 50/12.5 1 TAB PO SCH (07:43)
[2018-08-20] MEDS: PANTOPRAZOLE SODIUM 40 MG TAB PO SCH (07:43)
[2018-08-20] MEDS: ATORVASTATIN CALCIUM 20 MG TAB PO SCH (07:45)
[2018-08-20] MEDS: ACETAMINOPHEN 500 MG TAB PO SCH ×2 (07:45→16:26)
[2018-08-20] MEDS: MONTELUKAST SODIUM 10 MG TAB PO SCH (07:46)
[2018-08-20] MEDS: GABAPENTIN 300 MG CAP PO SCH ×3 (07:46→22:56)
[2018-08-20] MEDS: MULTIVITAMINS 1 EACH TAB PO SCH (07:46)
[2018-08-20] MEDS: METOPROLOL SUCCINATE XR 100 MG TAB PO SCH (07:46)
[2018-08-20] MEDS: FAMOTIDINE 20 MG TAB PO SCH ×2 (07:46→20:50)
[2018-08-20] MEDS: ENOXAPARIN 40 MG/0.4 ML SYR SC SCH (07:48)
[2018-08-20] MEDS: MOMETASONE 220MCG INHALER IH SCH ×2 (08:37→21:12)
--- NOTE | 2018-08-20 09:52 | NEUSURGPN ---
Assessment/Plan: A/P 67y/o s/p L3-S1 lami with left sided TLIF, PSF L3-S1, repair of small durotomy repair -Bowel protocol, no straining for 2 weeks post op -Pulmonary toilet, encouraged frequent IS -Optimize pain management-minimize sedation. pt clearing but still confused -DVT prophx: TEDs, SCDs, Lovenox okay POD1, okay to restart Eliquis POD7 - PT/OT, mobilize, up in chair, OOB as able. -Brace when OOB -Post op xrays pending for when patient is up right -Please notify NS with any change in neuro/motor exam Subjective: Pain ok this am. at bedside. Objective: NAD mild confusion, AAOx3 however EOMI, PEARLA MAEx4, 12/22= SILT incision CDI, RUPA out Catheter Insertion Date: 08/16/18 - Physician Discussed Patient with : Gregorio Neurosurgery Physical Exam - Vitals, I&O, Labs I and O 08/19/18 08/20/18 08/21/18 05:59 05:59 05:59 Intake Total 1000 Output Total 1350 350 Balance -1350 650 Intake: Oral (ml) 1000 Output: Urine (ml) 1300 350 Catheter 1300 350 RUPA Drain Output (ml) 50 Back Dave Christian 50 Other: Intake Quantity Yes Yes Sufficient Number of Voids Toilet 2 Number of Stools Toilet 2 Bladder Scan Volume (ml) Toilet 346 Vital Signs Temp Pulse Resp BP Pulse Ox 36.4 C 71 14 130/74 H 92 08/20/18 07:56 08/20/18 08:42 08/20/18 08:42 08/20/18 07:56 08/20/18 08:42 ICD10 Worksheet Patient Problems: Problems Problem Status Onset Low back pain Acute Osteoarthritis of knee Acute Seizure disorder Acute
[2018-08-20] MEDS ORDERED: oxyCODONE IR 5 MG TAB PO PRN (10:42)
[2018-08-20] MEDS: LEVETIRACETAM 750 MG PO SCH (11:05)
[2018-08-20] MEDS: cycloSPORINE 0.05% 30 DROPERETTE/BOX EACHEYE SCH ×2 (11:06→22:59)
--- NOTE | 2018-08-20 11:58 | ASMTCMCOM ---
CM Note CM Note Notes: PT/OT evals still pending. Per Shell with [facility] pt was referred to [facility] pre-surgery but as of 08/20/18 pt primary insurance is no longer Medicare but [facility] which [facility] does not take. CM to follow for d/c needs. Date Signed: 08/20/2018 11:57 AM Electronically Signed By:RERE Burgess
[2018-08-20] MEDS: SENNOSIDES/DOCUSATE SODIUM TAB PO SCH ×2 (16:27→20:49)
[2018-08-20] MEDS ORDERED: NS 1,000 ML IV ONE (17:30)
[2018-08-21] MEDS: ACETAMINOPHEN 500 MG TAB PO SCH ×4 (01:12→22:11)
[2018-08-21] MEDS: CYCLOBENZAPRINE 10 MG TAB PO PRN ×3 (06:13→23:04)
--- NOTE | 2018-08-21 08:01 | NEUSURGPN ---
Date of Surgery: 08/16/18 Post Op Day: 5 Assessment/Plan: Assessment: 67 y/o male that is s/p L3-S1 lami with left sided TLIF, PSF L3-S1, repair of small durotomy repair POD #5 Plan: -s/p L spine surgery: doing better today. No HAs with standing. Pt with some expected lower back pain -Bowel protocol, no straining for 2 weeks post op -Pulmonary toilet, encouraged frequent IS/deep breathing -Optimize pain management-minimize sedation. pt clearing per RN -DVT prophx: TEDs, SCDs, Lovenox okay POD1, okay to restart Eliquis POD7 -PT/OT, mobilize, up in chair, OOB as able -Brace when OOB -Post op xrays look good, no complications noted -Please notify NS with any change in neuro/motor exam Subjective: Awake and alert. Pt with expected lower back pain. No f/c/n/v/d. No cast/neck/ chest/abd or gu complaints. Objective: AAO x 3, PERRLA/EOMI no droop CN 2-12 grossly intact +lt touch 5/5 BUE/BLE = CDI-no dc. Neuro Check Frequency: per routine Urinary Catheter in Place: No Catheter Insertion Date: 18 - Physician Discussed Patient with : Jean Neurosurgery Physical Exam - Vitals, I&O, Labs I and O 08/20/18 08/21/18 08/22/18 05:59 05:59 05:59 Intake Total 1000 1250 Output Total 350 Balance 650 1250 Intake: Oral (ml) 1000 250 IV Infused (ml) 1000 Ns 1,000 ml @ As Directed 1000 IV ONCE ONE Rx#: [id number] Output: Urine (ml) 350 Catheter 350 Other: Intake Quantity Yes Sufficient Number of Voids Toilet 2 3 Number of Stools Toilet 2 Bladder Scan Volume (ml) Toilet 346 Vital Signs Temp Pulse Resp BP Pulse Ox 36.5 C 68 14 136/72 H 96 08/21/18 00:00 08/21/18 00:00 08/21/18 00:00 08/21/18 00:00 08/21/18 00:00 ICD10 Worksheet Patient Problems: Problems Problem Status Onset Low back pain Acute Osteoarthritis of knee Acute Seizure disorder Acute
[2018-08-21] MEDS: METOPROLOL SUCCINATE XR 100 MG TAB PO SCH (08:27)
[2018-08-21] MEDS: FAMOTIDINE 20 MG TAB PO SCH ×2 (08:28→20:38)
[2018-08-21] MEDS: GABAPENTIN 300 MG CAP PO SCH ×3 (08:28→22:11)
[2018-08-21] MEDS: MULTIVITAMINS 1 EACH TAB PO SCH (08:28)
[2018-08-21] MEDS: SENNOSIDES/DOCUSATE SODIUM TAB PO SCH ×2 (08:28→20:38)
[2018-08-21] MEDS: PANTOPRAZOLE SODIUM 40 MG TAB PO SCH (08:28)
[2018-08-21] MEDS: MONTELUKAST SODIUM 10 MG TAB PO SCH (08:29)
[2018-08-21] MEDS: ATORVASTATIN CALCIUM 20 MG TAB PO SCH (08:29)
[2018-08-21] MEDS: LOSARTAN/HCTZ 50/12.5 1 TAB PO SCH (08:29)
[2018-08-21] MEDS: LEVETIRACETAM 750 MG PO SCH (08:30)
[2018-08-21] MEDS: ENOXAPARIN 40 MG/0.4 ML SYR SC SCH (08:33)
[2018-08-21] MEDS: cycloSPORINE 0.05% 30 DROPERETTE/BOX EACHEYE SCH ×2 (08:35→20:42)
[2018-08-21] MEDS: MOMETASONE 220MCG INHALER IH SCH ×2 (09:30→21:03)
[2018-08-21] MEDS: FLUTICASONE NASAL 120 SPRAYS/16 GM MDI EACHNARE PRN (10:03)
--- NOTE | 2018-08-21 15:53 | ASMTCMCOM ---
CM Note CM Note Notes: OT rec home/HHC, PT rec inpatient rehab. Sara with inpatient rehab admissions reports pt does not qualify for their program. Spoke with pt Marina about SNF, she chooses [facility] who can accept pt with [facility] insurance authorization. Marina reports pt may want to go home with [facility], this would be easily arranged. Pt was sleeping the two times this CM was in room, CM will follow up with pt to discuss d/c planning. Date Signed: 08/21/2018 03:52 PM Electronically Signed By:RERE Burgess
[2018-08-22] MEDS: CYCLOBENZAPRINE 10 MG TAB PO PRN (05:17)
[2018-08-22] MEDS: LOSARTAN/HCTZ 50/12.5 1 TAB PO SCH (07:31)
[2018-08-22] MEDS: SENNOSIDES/DOCUSATE SODIUM TAB PO SCH (07:31)
[2018-08-22] MEDS: ATORVASTATIN CALCIUM 20 MG TAB PO SCH (07:32)
[2018-08-22] MEDS: PANTOPRAZOLE SODIUM 40 MG TAB PO SCH (07:32)
[2018-08-22] MEDS: FAMOTIDINE 20 MG TAB PO SCH (07:32)
[2018-08-22] MEDS: MULTIVITAMINS 1 EACH TAB PO SCH (07:32)
[2018-08-22] MEDS: METOPROLOL SUCCINATE XR 100 MG TAB PO SCH (07:33)
[2018-08-22] MEDS: MONTELUKAST SODIUM 10 MG TAB PO SCH (07:33)
[2018-08-22] MEDS: GABAPENTIN 300 MG CAP PO SCH (07:34)
[2018-08-22] MEDS: ACETAMINOPHEN 500 MG TAB PO SCH (07:34)
[2018-08-22] MEDS: ENOXAPARIN 40 MG/0.4 ML SYR SC SCH (07:34)
[2018-08-22] MEDS: LEVETIRACETAM 750 MG PO SCH (07:36)
[2018-08-22] MEDS: cycloSPORINE 0.05% 30 DROPERETTE/BOX EACHEYE SCH (07:38)
[2018-08-22] MEDS: FLUTICASONE NASAL 120 SPRAYS/16 GM MDI EACHNARE PRN (07:39)
--- NOTE | 2018-08-22 07:40 | NEUSURGPN ---
Date of Surgery: 08/16/18 Post Op Day: 6 Assessment/Plan: Assessment: 67 y/o male that is s/p L3-S1 lami with left sided TLIF, PSF L3-S1, repair of small durotomy repair POD #6 Plan: -s/p L spine surgery: doing better today. No HAs with standing. Pt with some expected lower back pain that is better overall -Bowel protocol, no straining for 2 weeks post op -dressing clean and dry -Pulmonary toilet, encouraged frequent IS/deep breathing -Optimize pain management-minimize sedation. Pt clearing -DVT prophx: TEDs, SCDs, Lovenox okay POD1, okay to restart Eliquis POD7 -PT/OT, mobilize, up in chair, OOB as able -Brace when OOB -Post op xrays look good, no complications noted -Please notify NS with any change in neuro/motor exam -plan for dc when able to [facility] vs rehab pending final evals from PT/OT as well as case management Subjective: Awake and alert. NAD. Eating/drinking and voiding. No f/c/n/v/d. No cast/neck/ chest/abd or gu complaints. Objective: AAO x 3, PERRLA/EOMI no droop CN 2-12 grossly intact +lt touch 5/5 BUE/BLE = CDI-no dc. Neuro Check Frequency: per routine Urinary Catheter in Place: No Catheter Insertion Date: 08/16/18 - Physician Discussed Patient with : Jean Neurosurgery Physical Exam - Vitals, I&O, Labs I and O 08/21/18 08/22/18 08/23/18 05:59 05:59 05:59 Intake Total 1250 450 Balance 1250 450 Intake: Oral (ml) 250 450 IV Infused (ml) 1000 Ns 1,000 ml @ As Directed 1000 IV ONCE ONE Rx#: [id number] Other: Number of Voids Toilet 3 1 Number of Stools Toilet 1 Vital Signs Temp Pulse Resp BP Pulse Ox 36.3 C 63 18 124/62 H 97 08/22/18 07:26 08/22/18 07:26 08/22/18 07:26 08/22/18 07:26 08/22/18 07:26 ICD10 Worksheet Patient Problems: Problems Problem Status Onset Low back pain Acute Osteoarthritis of knee Acute Seizure disorder Acute
[2018-08-22 07:53] VITALS: BP 121/63
[2018-08-22] MEDS ORDERED: GABAPENTIN 100 MG CAP PO SCH (09:00)
[2018-08-22] MEDS: MOMETASONE 220MCG INHALER IH SCH (09:26)
--- NOTE | 2018-08-22 12:22 | PDIAF ---
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 PICC Care - Routine: N/A - Orders Services needed: Home Care, Registered Nurse, Physical Therapy, Occupational Therapy Home Care Face to Face: I certify that this patient was under my care and that I had the required [id number] encounter meeting the encounter requirements on the discharge day. My findings support the fact that the patient is homebound as defined in Home Care Face to Face Continued: CMS Chapter 7 Medicare Benefits Manual 30.1.1 , The condition of the patient is such that there exists a normal inability to leave home and consequently, leaving home would require a considerable and taxing effort. Oxygen: to keep O2 sat above 90% Diet Recommendation: no restrictions on diet Diet Texture: Regular Texture Diet Kilpatrick: Not applicable Additional Instructions: Please follow up with primary care physiciian regarding Pneumonia vaccine. Discharge instructions given to pt. from [facility] for lumbar fusion. No bending or twisting Wear brace as directed Call with any questions or concerns - Follow Up Care Current Providers and Referrals: Iris Steele MD [Primary Care Provider] - Yosi Pena MD [Medical Doctor] - (follow up in 2-3 weeks)
--- NOTE | 2018-08-22 12:59 | ASMTDCNOTE ---
Case Management Discharge Discharge Order Complete? Answers: Yes Patient to Obtain Answers: via Family Medications Transportation Arranged Answers: Family/Friends Faxed Final Orders Answers: Yes Agency/Facility Transfer Answers: Yes Report Printed & Faxed to Receiving Agency Family Notified Answers: Yes Discharge Comments Notes: CM spoke with pt and about discharge plan with [facility] for [facility]. Family to transport. , Marina said her phone is best contact number at this time: [phone], [facility] alerted. No other CM needs identified at this time. Date Signed: 08/22/2018 12:58 PM Electronically Signed By:BERTHA Escalona
--- NOTE | 2018-08-22 12:59 | ASMTLACE ---
LACE Length of stay for Answers: 4-6 days current admission Acuity / Level of Answers: Yes Care: Did the patient have an inpatient admission? 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
--- NOTE | 2018-08-22 13:02 | ASDISCHSUM ---
Discharge Information Plan Status:Home with Home Health Medically Cleared to Leave:08/21/2018 Discharge Date:08/21/2018 CM D/C Disposition:Home Health Service ADT D/C Disposition:Home Health Service Projected Discharge Date:08/22/2018 11:00 AM Transportation at D/C:Family Discharge Delay Reason: Follow-Up Date:08/22/2018 11:00 AM Discharge Slot: Final Diagnosis: Placement Information Referral Type:*Fdc/SNF Referral ID:[id number] Provider Name: Address 1: Phone Number: Address 2: Fax Number: City: Selection Factors: State: Referral Type:*Home Health Care Services Referral ID:[id number] Provider Name:[facility] Address 1:[address] [facility] [address] Address 2: City:[place] Selection Factors: State:[place] Patient Contact Information Contact Name:CLARICE Relationship: Address:[address] Work Phone: City:[place] Alternate Phone: State/Zip Code:[place] [address] Email: Financial Information Financial Class:Medicare Primary Plan Desc:MEDICARE OUTPATIENT Primary Plan Number:[id number] Secondary Plan Desc:ARMAND [employer]ASENCIA O Secondary Plan Number:[id number] Assessment Information [facility] CM Progress Note CM Note CM Note Notes: Pt admitted for L3-S1 laminectomy on 08/16 in the setting of Spondylolisthesis. Pt lives with spouse in [place]. Pt is currently on bedrest and has no orders for therapy yet. D/C needs TBD. CM to follow. D/C Plan: TBD Date Signed: 08/17/2018 04:16 PM Electronically Signed By:Mohini Pablo LACE IVETH Length of stay for Answers: 4-6 days current admission Acuity / Level of Answers: Yes Care: Did the patient have an inpatient admission? 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 Leonard Goff with [facility] pt was referred to [facility] pre-surgery but as of 08/20/18 pt primary insurance is no longer Medicare but [employer] which [facility] does not take. CM to follow for d/c needs. Date Signed: 08/20/2018 11:57 AM Electronically Signed By:RERE Burgess [facility] CM Progress Note CM Note CM Note Notes: OT rec home/HHC, PT rec inpatient rehab. Sara with inpatient rehab admissions reports pt does not qualify for their program. Spoke with pt Marina about SNF, she chooses [facility] who can accept pt with [employer] insurance authorization. Amrina reports pt may want to go home with C, this would be easily arranged. Pt was sleeping the two times this CM was in room, CM will follow up with pt to discuss d/c planning. Date Signed: 08/21/2018 03:52 PM Electronically Signed By:RERE Burgess Case Management Discharge Plan Note Case Management Discharge Discharge Order Complete? Answers: Yes Patient to Obtain Answers: via Family Medications Transportation Arranged Answers: Family/Friends Faxed Final Orders Answers: Yes Agency/Facility Transfer Answers: Yes Report Printed & Faxed to Receiving Agency Family Notified Answers: Yes Discharge Comments Notes: CM spoke with pt and about discharge plan with [facility] for HHC. Family to transport. , Marina said her phone is best contact number at this time: [phone], [facility] alerted. No other CM needs identified at this time. Date Signed: 08/22/2018 12:58 PM Electronically Signed By:BERTHA Escalona Intervention Information
[2018-08-22] MEDS ORDERED: GABAPENTIN 300 MG CAP PO SCH (16:00)
== END 2018-08-22 14:02 | disposition home health service (06) | DRG 454 ==
LOC: F3N 07:34
PROVIDERS: ADMIT Neurological Surgery; ATTEND Neurological Surgery
DX: M47.26 Other spondylosis with radiculopathy, lumbar region (principal); G97.41 Accidental puncture or laceration of dura during a procedure; M47.27 Other spondylosis with radiculopathy, lumbosacral region; M81.0 Age-related osteoporosis without current pathological fracture; I10 Essential (primary) hypertension; G47.30 Sleep apnea, unspecified; J45.998 Other asthma; K21.9 Gastro-esophageal reflux disease without esophagitis; Z95.0 Presence of cardiac pacemaker
CPT/HCPCS: 97116-GP; 97162-GP; 97165-GO; 97535-GO; C1713; J0690; J1100; J1170; J1650; J2001; J2250; J2270; J2274; J2405; J2704; J3010

== ENCOUNTER → 2018-10-03 | Outpatient (CLI) | payer OTHER | LOC: FIMAGING 08:56 | PROVIDERS: ATTEND Physician Assistant | DX: Z09 Encounter for follow-up examination after completed treatment for conditions other than malignant neoplasm (principal); M43.16 Spondylolisthesis, lumbar region; Z98.1 Arthrodesis status ==

== ENCOUNTER → 2018-11-06 | Outpatient (CLI) | payer OTHER | LOC: FIMAGING 10:08 | PROVIDERS: ATTEND Physician Assistant | DX: Z98.1 Arthrodesis status (principal); R53.1 Weakness ==

== ENCOUNTER → 2019-02-04 | Outpatient (CLI) | payer OTHER | LOC: FIMAGING 09:01 ==